=== PATIENT | female | born 1950 | race Caucasian/White ===

== ENCOUNTER 2016-09-24 14:40 | Emergency (ER) | payer MEDICARE, OTHER ==
[~2016-09-24] VITALS: Ht 160 cm; Wt 62.6 kg
[~2016-09-24 14:40] MED LIST: ASPI-991 PO; CARV6.25 PO
[2016-09-24] MEDS ORDERED: predniSONE 20 MG TABLET ONE (14:59)
[2016-09-24] MEDS ORDERED: ALBUTEROL FS 2.5 MG/3 ML VIAL.NEB NEB ONE (15:00)
[2016-09-24] MEDS ORDERED: predniSONE 20 MG TABLET PO ONE (15:00)
[2016-09-24] MEDS ORDERED: IPRATROPIUM NEB FS 0.5 MG/2.5 ML AMPUL.NEB NEB ONE (15:00)
[2016-09-24] MEDS ORDERED: ALBUTEROL FS 2.5 MG/3 ML VIAL.NEB ONE (15:04)
[2016-09-24] MEDS ORDERED: IPRATROPIUM NEB FS 0.5 MG/2.5 ML AMPUL.NEB ONE (15:04)
[2016-09-24 15:36] VITALS: BP 120/68
== END 2016-09-24 15:37 | disposition home or self-care (01) ==
LOC: ER 15:27 → UNDOADMIN 16:05 → TELE 16:05
DX: J45.901 Unspecified asthma with (acute) exacerbation (principal); Z79.82 Long term (current) use of aspirin
CPT/HCPCS: 94640; 99283; A4606; J7512; Z7610

== ENCOUNTER 2018-12-02 13:25 | Emergency (ER) | payer MEDICARE, OTHER ==
[~2018-12-02] VITALS: Ht 157.5 cm; Wt 67.1 kg
[~2018-12-02 13:25] MED LIST changes: +ASPI-1152 PO; -ASPI-991 PO
--- NOTE | 2018-12-02 13:48 | NUR ---
BIB SELF, C/O LIGHTHEADEDNESS, PT THINKS ITS HER BP. DENIES CP, SOB, N/V @ THIS TIME. PT AMBULATORY, AOX4, VSS, RR EVEN AND UNLABORED ON RA. NO ACUTE DISTRESS NOTED. READY FOR EVAL.
--- NOTE | 2018-12-02 14:31 | NUR ---
PT REFUSING IV. AWARE
[2018-12-02 14:52] LABS: BASOPHILS # (AUTO) 0.1 /CMM (0.0-0.2); BASOPHILS % (AUTO) 0.8 % (0.0-2.0); EOSINOPHILS % (AUTO) 4.6 % (0.0-6.0); HEMATOCRIT 41 % (33-45); HEMOGLOBIN 13.5 g/dL (11.5-14.8); LYMPHOCYTES # (AUTO) 1.7 /CMM (0.8-4.8); LYMPHOCYTES % (AUTO) 23.4 % (20.0-44.0); MEAN CORPUSCULAR HGB CONC 33 g/dl (31.0-36.0); MEAN CORPUSCULAR VOLUME 93 fL (82-100); MONOCYTES # (AUTO) 0.5 /CMM (0.1-1.30); MONOCYTES % (AUTO) 6.4 % (2.0-12.0); NEUTROPHILS # (AUTO) 4.7 /CMM (1.8-8.9); NEUTROPHILS % (AUTO) 64.8 % (43.0-81.0); PLATELET COUNT (AUTO) 291 /CMM (150-450); RED BLOOD CELL COUNT(AUTO) 4.34 MIL/uL (4.0-5.2); WHITE BLOOD COUNT (AUTO) 7.2 K/uL (4.3-11.0)
[2018-12-02 15:07] LABS: CALCIUM, SERUM 8.9 mg/dL (8.5-10.1); CARBON DIOXIDE 26 mmol/L (21-32); CHLORIDE 108 mmol/L (98-107); CREATININE 0.6 mg/dL (0.6-1.3); GLUCOSE 96 mg/dL (74-106); POTASSIUM 3.9 mmol/L (3.5-5.1); SODIUM SERUM 145 mmol/L (136-145); UREA NITROGEN, BLOOD 16 mg/dL (7-18)
[2018-12-02] MEDS ORDERED: ALBU8.5H8 IH (15:13)
--- NOTE | 2018-12-02 16:05 | NUR ---
Patient discharged to home in stable condition. Written and verbal after care instructions given. Patient verbalizes understanding of instruction.
[2018-12-02 16:16] VITALS: BP 133/90
== END 2018-12-02 16:05 | disposition home or self-care (01) ==
LOC: ER 13:25
DX: I10 Essential (primary) hypertension (principal); F41.9 Anxiety disorder, unspecified; J45.909 Unspecified asthma, uncomplicated; Z60.2 Problems related to living alone; Z79.82 Long term (current) use of aspirin; Z79.899 Other long term (current) drug therapy
CPT/HCPCS: 36415; 71045-TC; 80048-TC; 84484-TC; 85025-TC

== ENCOUNTER 2019-12-09 14:40 | Outpatient (CLI) | payer MEDICARE, OTHER ==
[~2019-12-09 14:40] MED LIST changes: +ALBU8.5H8 IH; -CARV6.25 PO
== END 2019-12-09 23:59 | disposition home or self-care (01) ==
LOC: RAD 14:40
PROVIDERS: ATTEND Internal Medicine Interventional Cardiology
DX: R06.02 Shortness of breath (principal)
CPT/HCPCS: 71046

== ENCOUNTER 2019-12-11 14:38 | Emergency (ER) | payer MEDICARE, OTHER ==
[~2019-12-11] VITALS: Ht 157.5 cm; Wt 63.5 kg
--- NOTE | 2019-12-11 15:14 | NUR ---
BIBS FROM HOME TO ER BED 7. AAOX4. NOT IN RESP DISTRESS. AMBULATORY. APPERS ANXIOUS. CAME IN FOR NOT FEELING WELL WHICH STARTED @ 14OO. PT REPORTS THAT THIS MORNING SHE STARTED TAKING AUGMENTIN FOR BRONCHITIS. PER PT, SHE FEELS NAUSEOUS, SHAKY AND TINGLING. DENIES PAIN. MD WAS AT BEDSIDE FOR EVAL. ORDERS RECEVIEVED NOTED AND CARRIED OUT.
--- NOTE | 2019-12-11 15:20 | NUR ---
PT WAS PROVIDED WITH CRACKER AND JUICE TO CHECK IF PATIENT ABLE TO TOLERATED KEEPING DOWN FOOD AND LIQUIDS.
[2019-12-11 15:39] VITALS: BP 128/87
--- NOTE | 2019-12-11 16:30 | NUR ---
Patient discharged to home in stable condition. Written and verbal after care instructions given. Patient verbalizes understanding of instruction. Pt ambulatory with a steady gait
== END 2019-12-11 16:31 | disposition home or self-care (01) ==
LOC: ER 14:42
DX: F41.9 Anxiety disorder, unspecified (principal); J45.909 Unspecified asthma, uncomplicated; Z60.2 Problems related to living alone; Z79.82 Long term (current) use of aspirin; Z79.899 Other long term (current) drug therapy

== ENCOUNTER 2019-12-18 08:26 | Outpatient (CLI) | payer MEDICARE, OTHER ==
[2019-12-18 09:16] LABS: BASOPHILS % (AUTO) 0.7 % (0.0-2.0); EOSINOPHILS % (AUTO) 8.4 % (0.0-6.0); HEMATOCRIT 45 % (33-45); HEMOGLOBIN 14.8 g/dL (11.5-14.8); LYMPHOCYTES # (AUTO) 1.4 /CMM (0.8-4.8); LYMPHOCYTES % (AUTO) 25.6 % (20.0-44.0); MEAN CORPUSCULAR HGB CONC 33 g/dl (31.0-36.0); MEAN CORPUSCULAR VOLUME 93 fL (82-100); MONOCYTES # (AUTO) 0.4 /CMM (0.1-1.30); MONOCYTES % (AUTO) 7.2 % (2.0-12.0); NEUTROPHILS # (AUTO) 3.2 /CMM (1.8-8.9); NEUTROPHILS % (AUTO) 58.1 % (43.0-81.0); PLATELET COUNT (AUTO) 295 /CMM (150-450); RED BLOOD CELL COUNT(AUTO) 4.89 MIL/uL (4.0-5.2); WHITE BLOOD COUNT (AUTO) 5.5 K/uL (4.3-11.0)
[2019-12-18 09:30] LABS: ALBUMIN 3.8 g/dL (3.4-5.0); BILIRUBIN,TOTAL 0.5 mg/dL (0.2-1.0); CALCIUM, SERUM 9.1 mg/dL (8.5-10.1); CREATININE 0.7 mg/dL (0.6-1.3); POTASSIUM 3.9 mmol/L (3.5-5.1); TOTAL PROTEIN, SERUM 7.1 g/dL (6.4-8.2)
[2019-12-18 09:39] LABS: FREE T4 (FREE THYROXINE) 0.9 ng/dL (0.76-1.46); THYROID STIMULATING HORMONE 0.819 uIU/mL (0.358-3.74)
== END 2019-12-18 23:59 | disposition home or self-care (01) ==
LOC: LAB 08:26
PROVIDERS: ATTEND Internal Medicine Interventional Cardiology
DX: I10 Essential (primary) hypertension (principal); R53.83 Other fatigue; E55.9 Vitamin D deficiency, unspecified; E03.9 Hypothyroidism, unspecified; E78.5 Hyperlipidemia, unspecified
CPT/HCPCS: 36415; 80053-TC; 80061-TC; 82306; 84439-TC; 84443-TC; 85025-TC

== ENCOUNTER 2019-12-22 15:11 | Inpatient (IN) | payer MEDICARE, OTHER ==
[~2019-12-22] VITALS: Ht 157.5 cm; Wt 63.5 kg
[2019-12-22] VITALS: BP 120/70
[~2019-12-22 15:11] MED LIST changes: +PIPERACILLIN /TAZOBACTAM 3.375 G in IV D5W 100 ML IV SCH
[2019-12-22] MEDS ORDERED: ONDANSETRON HCL/PF 4 MG/2 ML VIAL ONE (15:52)
[2019-12-22 15:59] LABS: BASOPHILS # (AUTO) 0.1 /CMM (0.0-0.2); BASOPHILS % (AUTO) 0.9 % (0.0-2.0); EOSINOPHILS % (AUTO) 0.5 % (0.0-6.0); HEMATOCRIT 41 % (33-45); HEMOGLOBIN 13.6 g/dL (11.5-14.8); LYMPHOCYTES # (AUTO) 1.9 /CMM (0.8-4.8); LYMPHOCYTES % (AUTO) 13.4 % (20.0-44.0); MEAN CORPUSCULAR HGB CONC 33 g/dl (31.0-36.0); MEAN CORPUSCULAR VOLUME 93 fL (82-100); MONOCYTES # (AUTO) 0.7 /CMM (0.1-1.30); NEUTROPHILS # (AUTO) 11.1 /CMM (1.8-8.9); NEUTROPHILS % (AUTO) 80.2 % (43.0-81.0); PLATELET COUNT (AUTO) 313 /CMM (150-450); RED BLOOD CELL COUNT(AUTO) 4.46 MIL/uL (4.0-5.2); WHITE BLOOD COUNT (AUTO) 13.8 K/uL (4.3-11.0)
[2019-12-22] MEDS ORDERED: IV NS 0.9% 500 ML BAG IV ONE (16:00)
[2019-12-22] MEDS ORDERED: ONDANSETRON HCL/PF 4 MG/2 ML VIAL IVP ONE (16:00)
--- NOTE | 2019-12-22 16:03 | NUR ---
PT PRESENTED TO THE ER WITH A C/O RT SIDED ABD PAIN. PT IS AA&O X4. PT WAS TRIAGED AND TAKEN TO ER 12. PT WAS PLACED ON THE MONITOR AND POX.
--- NOTE | 2019-12-22 16:03 | NUR ---
PT LEFT FOR CT VIA GURNEY.
[2019-12-22 16:07] LABS: CALCIUM, SERUM 9.5 mg/dL (8.5-10.1); CREATININE 0.6 mg/dL (0.6-1.3); POTASSIUM 4.4 mmol/L (3.5-5.1)
[2019-12-22 16:13] LABS: ALBUMIN 3.9 g/dL (3.4-5.0); BILIRUBIN,DIRECT 0.1 mg/dL (0.0-0.2); BILIRUBIN,TOTAL 0.4 mg/dL (0.2-1.0)
--- NOTE | 2019-12-22 16:47 | NUR ---
PT APPEARS TO BE RESTING COMFORTABLY. WILL CONTINUE TO MONITOR THE PT.
--- NOTE | 2019-12-22 16:55 | NUR ---
CALLED [facility] FOR CONSULT.
[2019-12-22] MEDS ORDERED: LOSA100T31 PO (16:57)
[2019-12-22] MEDS ORDERED: PIPERACILLIN /TAZOBACTAM 3.375 G in IV D5W 50 ML IV ONE (17:00)
--- NOTE | 2019-12-22 17:06 | NUR ---
CALLED PHARMACY RE: ANTIBIOTIC ORDER
[2019-12-22 17:07] LABS: APPEARANCE,URINE Clear (CLEAR); BILIRUBIN,URINE Negative (NEGATIVE); BLOOD, URINE Negative Ery/uL (NEGATIVE); COLOR,URINE Yellow (YELLOW); KETONES,URINE Trace (NEGATIVE); LEUKOCYTE ESTERASE ,URINE Small (NEGATIVE); NITRITE, URINE Negative (NEGATIVE); PH,URINE 5.5 (5.0-8.0); PROTEIN,URINE Negative (NEGATIVE); UGLUCOSE Negative (NEGATIVE); UROBILINOGEN,URINE 0.2 EU/dL (0.2)
--- NOTE | 2019-12-22 17:09 | NUR ---
PT IS HUNGRY AND IS ASKING FOR FOOD. PT IS TOLD SHE IS NPO AT THIS TIME.
--- NOTE | 2019-12-22 17:20 | NUR ---
CALLED [facility] FOR ADMISSION
[2019-12-22 17:31] LABS: BACTERIA,URINE 1+ /HPF (None Seen); RBC,URINE NONE SEEN /HPF (0-2); SQUAMOUS EPITHELIAL CELL,UR Few /HPF (None Seen)
--- NOTE | 2019-12-22 17:52 | NUR ---
epic paged. requested a medsurg bed from rn supervisor education
--- NOTE | 2019-12-22 18:09 | NUR ---
DR JIMENEZ IS SPEAKING TO DR HICKS RE: ADMISSION.
[2019-12-22] MEDS ORDERED: IV NS 0.9% 1,000 ML IV PRN (18:14)
[2019-12-22] MEDS ORDERED: MORPHINE SULFATE INJ 2 MG/ML DISP.SYRIN IV PRN (18:30)
[2019-12-22] MEDS ORDERED: HYDROCODONE/APAP 5/325MG 1 EACH TABLET PO PRN (18:30)
[2019-12-22] MEDS ORDERED: MAG HYDROX/AL HYDROX/SIMETH 30 ML UDC PO PRN (18:30)
[2019-12-22] MEDS ORDERED: MAGNESIUM HYDROXIDE 30 ML UDC PO PRN (18:30)
[2019-12-22] MEDS ORDERED: ACETAMINOPHEN 325 MG TABLET PO PRN (18:30)
[2019-12-22] MEDS ORDERED: ONDANSETRON HCL/PF 4 MG/2 ML VIAL IVP PRN (18:30)
[2019-12-22] MEDS ORDERED: Z GUARD REMEDY 2 OZ OINT TP PRN (18:30)
--- NOTE | 2019-12-22 18:32 | NUR ---
CALLING REPORT TO LUZ THOMPSON
--- NOTE | 2019-12-22 18:43 | NUR ---
COVID 19 SWAB SENT TO LAB PER PRE SURGURY PROTOCOL.
[2019-12-22 20:00] VITALS: BP 120/70
--- NOTE | 2019-12-22 20:00 | NUR ---
MS RN ADMITTING NOTES PATIENT ARRIVED ON UNIT APPROXIMATELY 1914; PATIENT IS AMBULATORY, A/OX4; SKIN INTACT; BREATHING EVEN AND UNLABORED; NO SOB NOTED; PATIENT TOLERATING ROOM AIR WELL; PATIENT DENIES PAIN; PATIENT VERBALIZED SHE IS HUNGRY AND HAS NOT EATEN SINCE YESTERDAY; BELONGINGS CHECKED; MEDICATION CHECKED; PATIENT REPORTED DR. CHRISTIE PRESCRIBED HER COZAAR TO TAKE 100MG/DAILY; WILL INFORM PHARMACY; MED HX OBTAINED; PATIENT ORIENTED TO UNIT AND STAFF; AWAITING ADMITTING ORDERS; SAFETY PRECAUTIONS IMPLEMENTED; BED LOCKED IN LOW POSITION; SIDE RAILS X2; CALL LIGHT WITHIN REACH; WILL CONT TO MONITOR
--- NOTE | 2019-12-22 20:30 | NUR ---
MS RN NOTES SPOKE WITH DR. DUGAN 194 REGARDING PATIENT PROCEDURE; CLD ORDERED FOR NOW. PATIENT WILL BE NPO AFTER MIDNIGHT; PER DR. DUGAN, LAPAROSCOPIC APPENDECTOMY POSSIBLE OPEN AROUND 2PM 12/22; NO CHEMICAL PROPHYLAXIS AT THIS TIME D/T PROCEDURE TOMORROW; WILL INFORM DAY SHIFT; CONSENT SIGNED; WILL CONT TO MONITOR
[2019-12-22] MEDS: PIPERACILLIN /TAZOBACTAM 3.375 G in IV D5W 100 ML IV SCH (23:04)
--- NOTE | 2019-12-23 05:30 | NUR ---
MS RN NOTES RT AT BEDSIDE; PERFORMING EKG; EKG COMPLETED 539; FILED IN PATIENT BINDER; WILL CONT TO MONITOR
[2019-12-23 06:29] LABS: BASOPHILS # (AUTO) 0.1 /CMM (0.0-0.2); BASOPHILS % (AUTO) 1.2 % (0.0-2.0); EOSINOPHILS % (AUTO) 2.8 % (0.0-6.0); HEMATOCRIT 37 % (33-45); HEMOGLOBIN 12.2 g/dL (11.5-14.8); LYMPHOCYTES # (AUTO) 2.1 /CMM (0.8-4.8); LYMPHOCYTES % (AUTO) 24.8 % (20.0-44.0); MEAN CORPUSCULAR HGB CONC 33 g/dl (31.0-36.0); MEAN CORPUSCULAR VOLUME 93 fL (82-100); MONOCYTES # (AUTO) 0.5 /CMM (0.1-1.30); MONOCYTES % (AUTO) 5.6 % (2.0-12.0); NEUTROPHILS # (AUTO) 5.6 /CMM (1.8-8.9); NEUTROPHILS % (AUTO) 65.6 % (43.0-81.0); PLATELET COUNT (AUTO) 270 /CMM (150-450); RED BLOOD CELL COUNT(AUTO) 3.98 MIL/uL (4.0-5.2); WHITE BLOOD COUNT (AUTO) 8.5 K/uL (4.3-11.0)
--- NOTE | 2019-12-23 06:48 | NUR ---
MS RN NOTES PATIENT RESTING IN BED COMFORTABLY; A/OX4; BREATHING EVEN AND UNLABORED; NO SOB NOTED; PATIENT TOLERATING ROOM AIR WELL; NPO STATUS MAINTAINED; ISOLATION PRECAUTIONS MAINTAINED; L AC # 20 INTACT AND PATENT, INFUSING NS @ 75ML/HR; ABLE TO MAKE NEEDS KNOWN; ALL NEEDS RENDERED; SAFETY PRECAUTIONS IMPLEMENTED; BED LOCKED IN LOW POSITION; SIDE RAILS X2; CALL LIGHT WITHIN REACH; WILL ENDORSE DARYL TO ONCOMING SHIFT
--- NOTE | 2019-12-23 07:30 | NUR ---
RN OPENING NOTE Patient is resting in bed, A/O x4m showing no signs of acute distress or SOB, stable on RA. Patient has no complaints of pain at this time. IV line in the LAC #20g is clean and intact, flushing well. Bed is in lowest position, side rails x3 in upright position, call light is within reach, fall safety precautions enforced. Will continue with plan of care.
[2019-12-23 07:31] LABS: CALCIUM, SERUM 8.5 mg/dL (8.5-10.1); CREATININE 0.7 mg/dL (0.6-1.3); MAGNESIUM 1.7 mg/dL (1.8-2.4); PHOSPHORUS 4.5 mg/dL (2.5-4.9); POTASSIUM 3.8 mmol/L (3.5-5.1)
[2019-12-23 08:00] VITALS: BP 101/69
[2019-12-23] MEDS: Magnesium 1GM/D5W 100ML PREMIX 100 ML IV SCH ×2 (08:35→15:47)
[2019-12-23] MEDS: LOSARTAN POTASSIUM 50 MG TABLET PO SCH (09:00)
[2019-12-23] MEDS: PIPERACILLIN /TAZOBACTAM 3.375 G in IV D5W 100 ML IV SCH ×2 (10:01→16:39)
[2019-12-23] MEDS: ALBUTEROL SULFATE INH 18 GM HFA.AER.AD IH SCH (10:18)
[2019-12-23] MEDS ORDERED: BUPIVACAINE 0.5 % PF 150 MG/30 ML VIAL ONE (14:09)
[2019-12-23] MEDS ORDERED: MIDAZOLAM HCL 2 MG/2ML VIAL ONE (14:10)
[2019-12-23] MEDS ORDERED: FENTANYL PF 250MCG/5ML AMPUL ONE (14:11)
[2019-12-23] MEDS ORDERED: FENTANYL PF 100MCG/2ML AMPUL ONE (14:11)
[2019-12-23] MEDS ORDERED: ROCURONIUM BROMIDE 50 MG/5 ML ONE (14:12)
[2019-12-23] MEDS ORDERED: FAMOTIDINE/PF INJ 20 MG/2 ML VIAL IV ONE (14:12)
[2019-12-23] MEDS ORDERED: ALBUTEROL FS 2.5 MG/3 ML VIAL.NEB ONE (15:14)
--- NOTE | 2019-12-23 15:45 | NUR ---
RN NOTE Patient is back from laparoscopic appendectomy. Vital signs BP 122/67 HR 95 RR 18 O2 93% on RA T 97.4 F. Pain level is 7/10 in the lower abdomen. 3 surgical dressings noted in lower abdomen, clean dry and intact with small amount of drainage in the medial abdomen. Patient is A/O showing no signs of acute distress. Will continue to monitor.
[2019-12-23 16:00] VITALS: BP 122/67
[2019-12-23] MEDS ORDERED: MORPHINE SULFATE INJ 2 MG/ML DISP.SYRIN IV PRN (16:30)
[2019-12-23] MEDS ORDERED: ONDANSETRON HCL/PF 4 MG/2 ML VIAL IVP PRN (16:30)
[2019-12-23] MEDS ORDERED: oxyCODONE/APAP (5/325 MG) 1 UDTAB TABLET PO PRN (16:30)
[2019-12-23] MEDS ORDERED: IV D5/0.45 NACL W/20 MEQ KCL 1L IV PRN ×2 (16:30)
--- NOTE | 2019-12-23 18:00 | NUR ---
RN NOTE Received verbal order from MD to [facility]. Will carry out orders.
--- NOTE | 2019-12-23 19:24 | NUR ---
RN CLOSING NOTE Patient is resting in bed, A/O x4m showing no signs of acute distress or SOB, stable on RA. IV line in the LAC #20g is clean and intact, flushing well. All patient needs met, all due medications given, patient kept clean and dry throughout the shift. Bed is in lowest position, side rails x3 in upright position, call light is within reach, fall safety precautions enforced. Will endorse to senior quality engineer..
--- NOTE | 2019-12-23 19:30 | NUR ---
ms sade initial notes received report from am nurse and seen pt in bed on sitting position while talking to someone on her cellphone. denies any pain or any discomfort at this time. dressing on her abdomen dry and intact. still with IVF of ns at 75ml/hr infusing. kept her warm and comfortable at all times. will continue monitoring.
[2019-12-23 20:30] VITALS: BP 92/50
[2019-12-24] MEDS: PIPERACILLIN /TAZOBACTAM 3.375 G in IV D5W 100 ML IV SCH ×3 (00:30→16:06)
--- NOTE | 2019-12-24 01:30 | NUR ---
ms sade notes zosyn IVP bag hung by another nurse as ordered. resting comfortably in bed with no signs of distress noted. will continue monitoring.
--- NOTE | 2019-12-24 06:43 | NUR ---
ms auriculotherapist notes pt back to sleep after she used the restroom. stable throughout the night and slept well. denies any pain or any discomfort. all due meds given and all needs met. pt request to stay one more night if possible and she wants to speak to the doctor. spoke to her if she have any concern she will speak to the charge nurse and will notify md as well. kept her warm and comfortable at all times place call light at reach, will endorse.
--- NOTE | 2019-12-24 07:15 | NUR ---
RN opening note: Received patient in bed. Awake, alert and oriented x4. Able to make needs known. S/P appendectomy with no s/sx of pain noted. Patient reports minimal pain at site and "can still manage without pain medications". On room air with saturation @ 95% noted. No SOB and not in distress. IV site clean, dry, patent and intact. call light in reach. Bed locked, low and at semi-lovell's position. Side rails up x3. Safety ensured and observed. Will continue to monitor.
[2019-12-24 08:00] VITALS: BP 110/70
[2019-12-24] MEDS: LOSARTAN POTASSIUM 50 MG TABLET PO SCH (09:02)
[2019-12-24] MEDS: ALBUTEROL SULFATE INH 18 GM HFA.AER.AD IH SCH (09:03)
[2019-12-24 09:35] LABS: CALCIUM, SERUM 8.7 mg/dL (8.5-10.1); CREATININE 0.7 mg/dL (0.6-1.3); POTASSIUM 3.9 mmol/L (3.5-5.1)
[2019-12-24 09:41] LABS: ALBUMIN 3.2 g/dL (3.4-5.0); BILIRUBIN,TOTAL 0.4 mg/dL (0.2-1.0); TOTAL PROTEIN, SERUM 6.6 g/dL (6.4-8.2)
[2019-12-24 09:48] LABS: BASOPHILS # (AUTO) 0.1 /CMM (0.0-0.2); BASOPHILS % (AUTO) 0.6 % (0.0-2.0); EOSINOPHILS % (AUTO) 1.9 % (0.0-6.0); HEMATOCRIT 41 % (33-45); HEMOGLOBIN 13.3 g/dL (11.5-14.8); LYMPHOCYTES # (AUTO) 1.5 /CMM (0.8-4.8); LYMPHOCYTES % (AUTO) 15.2 % (20.0-44.0); MEAN CORPUSCULAR HGB CONC 33 g/dl (31.0-36.0); MEAN CORPUSCULAR VOLUME 92 fL (82-100); MONOCYTES # (AUTO) 0.6 /CMM (0.1-1.30); NEUTROPHILS # (AUTO) 7.3 /CMM (1.8-8.9); NEUTROPHILS % (AUTO) 76.3 % (43.0-81.0); PLATELET COUNT (AUTO) 303 /CMM (150-450); WHITE BLOOD COUNT (AUTO) 9.6 K/uL (4.3-11.0)
[2019-12-24] MEDS ORDERED: LEVO500T90 PO (11:46)
[2019-12-24 15:06] VITALS: BP 114/63
--- NOTE | 2019-12-24 18:30 | NUR ---
billing and insurance coordinator note: Patient was seen by Dr. Durán earlier on shift and patient was informed about discharged. Patient left facility via private car in stable condition. Belongings form were signed and all belongings returned. Discharged instructions were given, signed and understood by the patient.
== END 2019-12-24 18:15 | disposition home or self-care (01) | DRG 343 ==
LOC: EDUNIT# 15:11 → ER 15:13 → MED 18:55
PROVIDERS: ADMIT Internal Medicine; ATTEND Internal Medicine
PROC: 0DTJ4ZZ Resection of Appendix, Percutaneous Endoscopic Approach (ICD-10-PCS; principal; 2019-12-22)
DX: K35.30 Acute appendicitis with localized peritonitis, without perforation or gangrene (principal); I10 Essential (primary) hypertension; J45.909 Unspecified asthma, uncomplicated; D72.829 Elevated white blood cell count, unspecified; E83.42 Hypomagnesemia
CPT/HCPCS: 36415; 71045-TC; 80048-TC; 80053-TC; 80076-TC; 81000-TC; 83605-TC; 83690-TC; 83735-TC; 84100-TC; 85025-TC; 85610-TC; 85730-TC; 86850-TC; 87040-TC; 87081-TC; 87086-TC; 87186-TC; 88304-TC; G0378; J0690; J1100; J2250; J2270; J2405; J2543; J2704; J2710; J2765; J3010; J3475; J3480; J3490; J7030; J7040; J7060; U0003-CS

== ENCOUNTER 2020-01-06 00:21 | Inpatient (IN) | payer MEDICARE, OTHER ==
[~2020-01-06] VITALS: Ht 157.5 cm; Wt 66.2 kg
[~2020-01-06 00:21] MED LIST changes: -ASPI-1152 PO; +ASPI-1420 PO; +LEVO500T90 PO; +LOSA100T31 PO; -PIPERACILLIN /TAZOBACTAM 3.375 G in IV D5W 100 ML IV SCH
--- NOTE | 2020-01-06 00:30 | NUR ---
PT CAME TO THE ED GENERALIZED ABD PAIN X 3 HRS. +N/-V/-D. PT AAOX4, VSS, RESPIRATIONS EVEN AND UNLABORED ON RA W/ NAD NOTED. PT CONNECTED TO THE MONITOR AND POX.
--- NOTE | 2020-01-06 00:42 | NUR ---
URINE COLLECTED AND SENT TO LAB
[2020-01-06] MEDS ORDERED: ONDANSETRON HCL/PF 4 MG/2 ML VIAL ONE ×2 (00:45→02:13)
[2020-01-06] MEDS ORDERED: MORPHINE SULFATE INJ 4 MG/ML DISP.SYRIN ONE ×2 (00:46→02:13)
[2020-01-06 00:48] LABS: BILIRUBIN,URINE Negative (NEGATIVE); BLOOD, URINE Negative Ery/uL (NEGATIVE); COLOR,URINE Yellow (YELLOW); KETONES,URINE Negative (NEGATIVE); LEUKOCYTE ESTERASE ,URINE Small (NEGATIVE); NITRITE, URINE Negative (NEGATIVE); PH,URINE 5.5 (5.0-8.0); PROTEIN,URINE Trace mg/dl (NEGATIVE); UGLUCOSE Negative (NEGATIVE); UROBILINOGEN,URINE 0.2 EU/dL (0.2)
[2020-01-06 00:49] LABS: APPEARANCE,URINE HAZY (CLEAR)
[2020-01-06 00:58] LABS: BACTERIA,URINE 1+ /HPF (None Seen); SQUAMOUS EPITHELIAL CELL,UR Moderate /HPF (None Seen); YEAST,URINE Few /HPF (None Seen)
[2020-01-06] MEDS ORDERED: ONDANSETRON HCL/PF 4 MG/2 ML VIAL IVP ONE (01:00)
[2020-01-06] MEDS ORDERED: MORPHINE SULFATE INJ 2 MG/ML DISP.SYRIN IV ONE ×2 (01:00→02:30)
[2020-01-06] MEDS ORDERED: IV NS 0.9% 500 ML BAG IV ONE (01:00)
[2020-01-06 01:05] LABS: BASOPHILS # (AUTO) 0.1 /CMM (0.0-0.2); BASOPHILS % (AUTO) 0.8 % (0.0-2.0); EOSINOPHILS % (AUTO) 3.1 % (0.0-6.0); HEMATOCRIT 43 % (33-45); HEMOGLOBIN 14.1 g/dL (11.5-14.8); LYMPHOCYTES # (AUTO) 2.9 /CMM (0.8-4.8); MEAN CORPUSCULAR HGB CONC 33 g/dl (31.0-36.0); MEAN CORPUSCULAR VOLUME 92 fL (82-100); MONOCYTES # (AUTO) 0.7 /CMM (0.1-1.30); MONOCYTES % (AUTO) 6.7 % (2.0-12.0); NEUTROPHILS # (AUTO) 6.7 /CMM (1.8-8.9); NEUTROPHILS % (AUTO) 62.4 % (43.0-81.0); PLATELET COUNT (AUTO) 346 /CMM (150-450); RED BLOOD CELL COUNT(AUTO) 4.68 MIL/uL (4.0-5.2); WHITE BLOOD COUNT (AUTO) 10.8 K/uL (4.3-11.0)
[2020-01-06] MEDS ORDERED: IOHEXOL-300 100 ML VIAL IV ONE (01:18)
[2020-01-06] MEDS ORDERED: CT SWABBABLE VALVE TRANS SET 1 EA INFUS.SET MC ONE (01:18)
[2020-01-06] MEDS ORDERED: IV NS 0.9% 250 ML IV ONE (01:19)
[2020-01-06 01:20] LABS: CALCIUM, SERUM 9.6 mg/dL (8.5-10.1); CREATININE 0.7 mg/dL (0.6-1.3)
[2020-01-06 01:25] LABS: ALBUMIN 4.1 g/dL (3.4-5.0); BILIRUBIN,DIRECT 0.1 mg/dL (0.0-0.2); BILIRUBIN,TOTAL 0.3 mg/dL (0.2-1.0); TOTAL PROTEIN, SERUM 7.5 g/dL (6.4-8.2)
--- NOTE | 2020-01-06 01:25 | NUR ---
[place] oliveira in [facility] - 01/06/20 at 0231 by KATE REPORT GIVEN TO LUZ BAKER FOR DARYL
[2020-01-06] MEDS ORDERED: IV NS 0.9% 1,000 ML IV ONE (02:30)
[2020-01-06] MEDS ORDERED: ONDANSETRON HCL/PF 4 MG/2 ML VIAL IV ONE (02:30)
--- NOTE | 2020-01-06 04:52 | NUR ---
PAGED DR. DUGAN
--- NOTE | 2020-01-06 04:57 | NUR ---
PAGED DR. NILTON PRUITT
[2020-01-06] MEDS ORDERED: DIATR MEGLU/DIATRIZOATE SODIUM 120 ML BOTTLE (GASTROGRAPHIN) ONE (05:00)
--- NOTE | 2020-01-06 05:19 | NUR ---
REPORT GIVEN TO LUZ DSOUZA FOR DARYL
[2020-01-06] MEDS ORDERED: LORA10TA68 PO (05:24)
[2020-01-06] MEDS ORDERED: ONDANSETRON HCL/PF 4 MG/2 ML VIAL IVP PRN (05:30)
[2020-01-06] MEDS ORDERED: MORPHINE SULFATE INJ 2 MG/ML DISP.SYRIN IV PRN (05:30)
--- NOTE | 2020-01-06 05:30 | NUR ---
RADIOLOGY AT BEDSIDE
--- NOTE | 2020-01-06 05:40 | NUR ---
ADMISSION NOTE. PATIENT ADMITTED FROM ER FOR DX OF SBO UNDER DR. CALLAWAY OF [facility]. WITH CC OF N/V AND ABD PAIN EARLIER TONGITH SO SHE DROVE HERSELF TO ER. PATIENT DENIES N/V AT THIS TIME. PATIENT REPORTS PAIN IN ABD MDDLE. RATED 3/10 ORIENTED TO ROOM.L. BED DOWN LOCKED CALL LIGHT IN REACH. VERBALIZED UNDERSTANDING TO CALL FOR ASSISTANCE NEEDED.
--- NOTE | 2020-01-06 05:44 | NUR ---
PT TRANSFERRED TO ROOM IN STABLE CONDITION
[2020-01-06] MEDS: IV NS 0.9% 1,000 ML IV PRN ×2 (05:56→21:53)
[2020-01-06 06:00] VITALS: BP 136/75
--- NOTE | 2020-01-06 06:00 | NUR ---
pt adopted no family hx known.
--- NOTE | 2020-01-06 06:08 | NUR ---
PATIENT REFUSED NGT INSERTION. INFORMED THAT DOCTOR ORDERED NGT FOR SBO. DISCUSSED RISKS AND BENEFITS OF HAVING ONE INSERTED PER MD RECOMMENDATIONS. PT REFUSING INSERTION AT THIS TIME. PT STATES, ' I DON'T WANT ANYTHING SHOVED IN MY NOSE. BESIDES I THINK THE OBSTRUCTION MIGHT CLEAR BY ITSELF, ID LIKE TO HOLD OFF ON THAT FOR NOW."
[2020-01-06 06:34] VITALS: BP 136/75
[2020-01-06 08:00] VITALS: BP 132/77
--- NOTE | 2020-01-06 08:00 | NUR ---
MS RN AM NOTES RECEIVED PATIENT ALERT AND ORIENTED X4. RESPIRATIONS NON LABORED IN ROOM AIR.PATIENT DENIES N/V AT THIS TIME. PATIENT REPORTS ABD DISCOMFORT RATED 1/10 BUT TOLERABLE UNLIKE BEFORE.WILL MONITOR.ON NPO AND PT IS COMPLIANT.PENDING SURGICAL CONSULT. BED DOWN LOCKED.CALL LIGHT WITHIN REACH. VERBALIZED UNDERSTANDING TO CALL FOR ASSISTANCE NEEDED.
[2020-01-06] MEDS: PANTOPRAZOLE 40 MG VIAL IV SCH (09:20)
[2020-01-06] MEDS: CEFTRIAXONE 1 G in IV D5W 50 ML IV SCH (10:16)
[2020-01-06] MEDS: NITROGLYCERIN 30 GM TUBE TP SCH ×2 (10:40→21:00)
[2020-01-06 16:00] VITALS: BP 114/72
--- NOTE | 2020-01-06 19:30 | NUR ---
MS/RN OPENING NOTES RECEIVED PATIENT IN BED ALERT AND ORIENTED X4. RESPIRATIONS NON LABORED ON ROOM AIR. PATIENT DENIES N/V AT THIS TIME. PATIENT HAS NO SIGNS OF SOB OR DISTRESS NOTED AT THIS TIME. IV ACCESS ON LEFT AC G#18 PATENT AND INTACT RUNNING NS AT 75 ML/HR. SAFETY MEASURES ARE IN PLACE, BED LOCKED AND IN LOWEST POSITION, CALL LIGHT IS WITHIN REACH. WILL CONTINUE TO MONITOR PATIENT DURING SHIFT.
[2020-01-06 20:00] VITALS: BP 98/60
--- NOTE | 2020-01-07 01:22 | NUR ---
RN NOTES PT. VOMITED BUT REFUSED TO HAVE ZOFRAN IV, PT. STATED THAT" SHE KNOWS HER BODY AND THIS IS JUST BECAUSE OF REFLUX", EXPLAINED THE IMPORTANCE OF ANTI-NAUSEA MEDICATION , PT. STILL REFUSING.
[2020-01-07 06:25] LABS: BASOPHILS % (AUTO) 0.1 % (0.0-2.0); HEMATOCRIT 45 % (33-45); HEMOGLOBIN 14.6 g/dL (11.5-14.8); LYMPHOCYTES # (AUTO) 1.6 /CMM (0.8-4.8); LYMPHOCYTES % (AUTO) 7.7 % (20.0-44.0); MEAN CORPUSCULAR HGB CONC 32 g/dl (31.0-36.0); MEAN CORPUSCULAR VOLUME 92 fL (82-100); MONOCYTES # (AUTO) 0.9 /CMM (0.1-1.30); MONOCYTES % (AUTO) 4.1 % (2.0-12.0); NEUTROPHILS # (AUTO) 18.9 /CMM (1.8-8.9); NEUTROPHILS % (AUTO) 88.1 % (43.0-81.0); PLATELET COUNT (AUTO) 349 /CMM (150-450); RED BLOOD CELL COUNT(AUTO) 4.91 MIL/uL (4.0-5.2); WHITE BLOOD COUNT (AUTO) 21.4 K/uL (4.3-11.0)
[2020-01-07 07:10] LABS: ALBUMIN 3.4 g/dL (3.4-5.0); BILIRUBIN,TOTAL 0.7 mg/dL (0.2-1.0); CALCIUM, SERUM 8.9 mg/dL (8.5-10.1); CREATININE 1.1 mg/dL (0.6-1.3); MAGNESIUM 1.8 mg/dL (1.8-2.4); PHOSPHORUS 4.3 mg/dL (2.5-4.9); POTASSIUM 3.8 mmol/L (3.5-5.1)
[2020-01-07 07:28] LABS: THYROID STIMULATING HORMONE 0.571 uIU/mL (0.358-3.74)
--- NOTE | 2020-01-07 07:30 | NUR ---
MS/RN OPENING NOTES Received patient in bed, A&O x 4. Denies N/V or pain/discomfort at this time. Breathing even and non-labored on RA. No respiratory or cardiac distress noted. Patient IV access noted on the left wrist #18, patent and intact, infusing NS @ 75ml/hr. No s/s of infection/infiltration noted on the site. Patient remains NPO, explain its importance. Patient verbalized understanding. Sensation from all peripheral extremities noted. Fall precautions maintained. Will continue to monitor for any changes in condition.
[2020-01-07 08:00] VITALS: BP 93/57
--- NOTE | 2020-01-07 08:20 | NUR ---
PT VERBALIZED THAT WHEN SHE VOMITS IT'S NOT DUE TO NAUSEA,SHE STATED THAT WHEN SHE WAS YOUNG, HER UPPER ABDOMINAL VALVE WAS MESSED UP TRYING TO LOSE WEIGHT BECAUSE SHE WAS OVERWEIGHT WHEN SHE WAS YOUNG.
[2020-01-07] MEDS: CEFTRIAXONE 1 G in IV D5W 50 ML IV SCH (08:38)
[2020-01-07] MEDS: PANTOPRAZOLE 40 MG VIAL IV SCH (08:38)
[2020-01-07] MEDS: NITROGLYCERIN 30 GM TUBE TP SCH ×3 (08:38→21:00)
--- NOTE | 2020-01-07 09:30 | NUR ---
PT WAS SEEN BY DR DUGAN AND [facility] AND STARTED QUESTIONING PT'S WBC SPIKED UP FROM 10.8 YESTERDAY TO 21.[address] DUGAN ORDERED REPEAT BLOOD DRAW OF CBC.
[2020-01-07] MEDS: METOCLOPRAMIDE HCL 10 MG/2 ML VIAL IV SCH ×3 (10:12→20:46)
[2020-01-07 11:12] LABS: BASOPHILS # (AUTO) 0.1 /CMM (0.0-0.2); BASOPHILS % (AUTO) 0.3 % (0.0-2.0); HEMATOCRIT 41 % (33-45); HEMOGLOBIN 13.6 g/dL (11.5-14.8); LYMPHOCYTES # (AUTO) 1.4 /CMM (0.8-4.8); LYMPHOCYTES % (AUTO) 6.5 % (20.0-44.0); MEAN CORPUSCULAR HGB CONC 33 g/dl (31.0-36.0); MEAN CORPUSCULAR VOLUME 91 fL (82-100); MONOCYTES % (AUTO) 4.5 % (2.0-12.0); NEUTROPHILS # (AUTO) 19.3 /CMM (1.8-8.9); NEUTROPHILS % (AUTO) 88.7 % (43.0-81.0); PLATELET COUNT (AUTO) 307 /CMM (150-450); RED BLOOD CELL COUNT(AUTO) 4.54 MIL/uL (4.0-5.2); WHITE BLOOD COUNT (AUTO) 21.7 K/uL (4.3-11.0)
[2020-01-07] MEDS: IV NS 0.9% 1,000 ML IV PRN (13:59)
--- NOTE | 2020-01-07 15:35 | NUR ---
MS/RN NOTES Patient refused reglan, states "Reglan makes me loopy, I don't like it. Besides, I don't feel nauseated as of right now." Will continue to monitor patient for any changes in condition.
[2020-01-07 16:00] VITALS: BP 110/65
--- NOTE | 2020-01-07 19:00 | NUR ---
MS/RN CLOSING NOTES Patient in bed, A&O x 4. Patient reported to have 2 vomiting episodes during the day, but refused to take reglan. Denies N/V or pain/discomfort at this time. Breathing even and non-labored on RA, no SOB noted. No cardiac distress noted. Patient IV access noted on the left wrist #18, patent and intact, infusing NS @ 75ml/hr. No s/s of infection/infiltration noted on the site. Sensation from all peripheral extremities noted. Patient ambulated with assist in the afternoon, steady gait noted. Patient tolerating clear liquid diets as well. Fall precautions maintained. Will endorse to carton making machine operator nurse.
--- NOTE | 2020-01-07 19:30 | NUR ---
MS/RN OPENING NOTES RECEIVED PATIENT AWAKE IN BED ALERT AND ORIENTED X4. RESPIRATIONS NON LABORED ON ROOM AIR. PATIENT DENIES N/V, AND PAIN AT THIS TIME. PATIENT HAS NO SIGNS OF SOB OR DISTRESS NOTED AT THIS TIME. IV ACCESS ON LEFT WRIST G#18 PATENT AND INTACT RUNNING NS AT 75 ML/HR. SAFETY MEASURES ARE IN PLACE, BED LOCKED AND IN LOWEST POSITION, CALL LIGHT IS WITHIN REACH. WILL CONTINUE TO MONITOR PATIENT DURING SHIFT.
[2020-01-07 20:36] VITALS: BP 125/76
--- NOTE | 2020-01-07 21:00 | NUR ---
MS/RN NOTES PATIENT REFUSES TO HAVE NITROL OINTMENT APPLIED. PATIENT IS IN NO DISTRESS AT THIS TIME. BLOOD PRESSURE IS 125/76, HR 84. WILL CONTINUE TO MONITOR PATIENT.
[2020-01-08] MEDS: METOCLOPRAMIDE HCL 10 MG/2 ML VIAL IV SCH ×5 (02:45→20:55)
[2020-01-08] MEDS: IV NS 0.9% 1,000 ML IV PRN ×2 (05:22→18:24)
--- NOTE | 2020-01-08 06:03 | NUR ---
MS/RN CLOSING NOTES PATIENT IS RESTING IN BED, ALERT AND ORIENTED X4. RESPIRATIONS NON LABORED ON ROOM AIR. PATIENT DENIES N/V, AND PAIN AT THIS TIME. PATIENT HAS NO SIGNS OF SOB OR DISTRESS NOTED AT THIS TIME. IV ACCESS ON LEFT WRIST G#18 PATENT AND INTACT RUNNING NS AT 75 ML/HR. SAFETY MEASURES ARE IN PLACE, BED LOCKED AND IN LOWEST POSITION, CALL LIGHT IS WITHIN REACH. PATIENTS NEEDS HAVE BEEN MET DURING SHIFT, WILL ENDORSE CARE TO DAY SHIFT NURSE.
[2020-01-08 06:50] LABS: CALCIUM, SERUM 9.1 mg/dL (8.5-10.1); CREATININE 0.6 mg/dL (0.6-1.3); POTASSIUM 3.6 mmol/L (3.5-5.1)
[2020-01-08 06:54] LABS: BASOPHILS % (AUTO) 0.2 % (0.0-2.0); HEMATOCRIT 39 % (33-45); HEMOGLOBIN 12.8 g/dL (11.5-14.8); LYMPHOCYTES # (AUTO) 1.2 /CMM (0.8-4.8); LYMPHOCYTES % (AUTO) 5.9 % (20.0-44.0); MEAN CORPUSCULAR HGB CONC 33 g/dl (31.0-36.0); MEAN CORPUSCULAR VOLUME 92 fL (82-100); MONOCYTES # (AUTO) 0.8 /CMM (0.1-1.30); MONOCYTES % (AUTO) 3.8 % (2.0-12.0); NEUTROPHILS # (AUTO) 18.2 /CMM (1.8-8.9); NEUTROPHILS % (AUTO) 90.1 % (43.0-81.0); PLATELET COUNT (AUTO) 286 /CMM (150-450); RED BLOOD CELL COUNT(AUTO) 4.26 MIL/uL (4.0-5.2); WHITE BLOOD COUNT (AUTO) 20.3 K/uL (4.3-11.0)
[2020-01-08 08:00] VITALS: BP 132/69
--- NOTE | 2020-01-08 08:00 | NUR ---
MS/RN AM NOTES PATIENT IS RESTING IN BED, ALERT AND ORIENTED X4. RESPIRATIONS NON LABORED ON ROOM AIR. PATIENT DENIES N/V, AND PAIN AT THIS TIME. PATIENT HAS NO SIGNS OF SOB OR DISTRESS NOTED AT THIS TIME. IV ACCESS ON LEFT WRIST G#18 PATENT AND INTACT RUNNING NS AT 75 ML/HR. PT HAD REGLAN IV AND PROTONIX IV BUT PT VOMITED GREEN LIQUID EMESIS (200 ML)AFTER A FEW MINS SAYING SHE DOESN'T WANT TAKING REGLAN AND PROTONIX IV ANYMORE DUE TO HAVING BAD REACTIONS WITH THEM .SAFETY MEASURES ARE IN PLACE, BED LOCKED AND IN LOWEST POSITION, CALL LIGHT IS WITHIN REACH.
[2020-01-08] MEDS: PANTOPRAZOLE 40 MG VIAL IV SCH (08:12)
[2020-01-08] MEDS: CEFTRIAXONE 1 G in IV D5W 50 ML IV SCH (08:13)
[2020-01-08] MEDS: NITROGLYCERIN 30 GM TUBE TP SCH ×2 (08:14→20:55)
[2020-01-08] MEDS ORDERED: BISACODYL SUPP (10 MG) 10 MG/SUPP.RECT SUPP.RECT RC PRN (12:30)
--- NOTE | 2020-01-08 12:30 | NUR ---
NOTIFIED DR DUGAN OF PT'S REFUSING REGLAN, ZOFRAN AND PROTONIX IV.
[2020-01-08] MEDS: BISACODYL (5 MG) 5 MG TABLET.DR PO PRN (12:35)
[2020-01-08 15:56] VITALS: BP 121/70
[2020-01-08 16:00] VITALS: BP 121/70
--- NOTE | 2020-01-08 16:31 | NUR ---
AMBULATED ALONG THE HALLWAY WITH ASSISTANCE 3X -PT TOLERATED WELL.
--- NOTE | 2020-01-08 18:47 | NUR ---
SITTING IN BED WATCHING TV. DENIES ANY PAIN OR DISTRESS. CALL LIGHT PLACED WITHIN REACH.
--- NOTE | 2020-01-08 19:05 | NUR ---
MS RN NOTES RECEIVED PT IN BED AWAKE AND ABLE TO MAKE NEEDS KNOWN. PT A/O X3. RESPIRATIONS EVEN AND UNLABORED WITH NO S/S OF ACUTE DISTRESS OR SOB NOTED. NO COMPLAINTS OF PAIN AT THIS LUSI. PT NOTED WITH LWRIST #18G PATENT AND INTACT INFUSING NS @75CC/HR. SAFETY MEASURES IN PLACE WITH BED IN LOWEST LOCKED POSITION WITH SIDE RAILS UP X2. CALL LIGHT WITHIN REACH. WILL CONTINUE TO MONITOR.
[2020-01-08 20:00] VITALS: BP 124/72
[2020-01-09] MEDS: METOCLOPRAMIDE HCL 10 MG/2 ML VIAL IV SCH ×4 (03:30→21:21)
--- NOTE | 2020-01-09 06:59 | NUR ---
MS RN NOTES PT IN BED AWAKE AND ABLE TO MAKE NEEDS KNOWN. PT A/O X3. RESPIRATIONS EVEN AND UNLABORED WITH NO S/S OF ACUTE DISTRESS OR SOB NOTED THROUGHOUT SHIFT. NO COMPLAINTS OF PAIN AT THIS LUIS. PT NOTED WITH LWRIST #18G PATENT AND INTACT INFUSING NS @75CC/HR. SAFETY MEASURES IN PLACE WITH BED IN LOWEST LOCKED POSITION WITH SIDE RAILS UP X2. CALL LIGHT WITHIN REACH. WILL ENDORSE TO ONCOMING NURSE FOR DARYL.
[2020-01-09 08:00] VITALS: BP 123/88
--- NOTE | 2020-01-09 08:00 | NUR ---
MS RN NOTES PT IN BED AWAKE AND ABLE TO MAKE NEEDS KNOWN. PT A/O X3. RESPIRATIONS EVEN AND UNLABORED WITH NO S/S OF ACUTE DISTRESS OR SOB NOTED THROUGHOUT SHIFT. NO COMPLAINTS OF PAIN AT THIS TIME. PT WITH LWRIST #18G PATENT AND INTACT INFUSING NS @75CC/HR. SAFETY MEASURES IN PLACE WITH BED IN LOWEST LOCKED POSITION WITH SIDE RAILS UP X2. CALL LIGHT WITHIN REACH.
[2020-01-09] MEDS: PANTOPRAZOLE 40 MG VIAL IV SCH (08:20)
[2020-01-09] MEDS: CEFTRIAXONE 1 G in IV D5W 50 ML IV SCH (08:40)
[2020-01-09] MEDS: NITROGLYCERIN 30 GM TUBE TP SCH ×2 (08:40→21:23)
[2020-01-09 11:03] LABS: BASOPHILS % (AUTO) 0.2 % (0.0-2.0); EOSINOPHILS % (AUTO) 0.1 % (0.0-6.0); HEMATOCRIT 39 % (33-45); HEMOGLOBIN 12.8 g/dL (11.5-14.8); LYMPHOCYTES # (AUTO) 1.9 /CMM (0.8-4.8); LYMPHOCYTES % (AUTO) 13.2 % (20.0-44.0); MEAN CORPUSCULAR HGB CONC 33 g/dl (31.0-36.0); MEAN CORPUSCULAR VOLUME 92 fL (82-100); MONOCYTES % (AUTO) 6.6 % (2.0-12.0); NEUTROPHILS # (AUTO) 11.6 /CMM (1.8-8.9); NEUTROPHILS % (AUTO) 79.9 % (43.0-81.0); PLATELET COUNT (AUTO) 301 /CMM (150-450); RED BLOOD CELL COUNT(AUTO) 4.28 MIL/uL (4.0-5.2); WHITE BLOOD COUNT (AUTO) 14.6 K/uL (4.3-11.0)
--- NOTE | 2020-01-09 13:06 | NUR ---
PT C/O SORE THROAT FROM THE VOMITING IN THE PAST. PT MADE LARGE SOFT BROWN BM THIS MORNING AND BEFORE LUNCH. ABLE TO EAT BETTER NOW EXCEPT FOR THE SORE THROAT. WILL NOTIFY
[2020-01-09] MEDS ORDERED: MENTHOL/CETYLPYRD (CEPACOL) 1 LOZ LOZENGE PO PRN (13:30)
[2020-01-09] MEDS: BISACODYL (5 MG) 5 MG TABLET.DR PO PRN (14:11)
[2020-01-09] MEDS: IV NS 0.9% 1,000 ML IV PRN (14:14)
[2020-01-09 16:00] VITALS: BP 132/77
--- NOTE | 2020-01-09 19:03 | NUR ---
PT MADE 2 SOFT BROWN BM. 1 LARGE AND 1 MODERATE AMOUNT.PT AMBULATING THE HALLWAY WITH ASSIST 3X. NO NAUSEA OR VOMITING EPISODE DURING THE SHIFT.WILL MONITOR.CALL LIGHT PLACED WITHIN REACH.
--- NOTE | 2020-01-09 19:05 | NUR ---
RN MS OPENING NOTES RECEIVED PATIENT IN BED AWAKE ALERT AND ORIENTED X3, RESPIRATIONS EVEN AND UNLABORED WITH EQUAL RISE AND FALL OF CHEST AT THIS TIME DENIES ANY PAIN OR DISCOMFORT, IV SITE TO LEFT WRIST #18 G INTACT AND PATENT, NO REDNESS, NO INFILTRATION PRESENT, IVF INFUSING AT THIS TIME, ORIENTED TO STAFF AND CALL LIGHT AND KEPT WITHIN REACH, SAFETY PRECAUTIONS IN PLACE, LOW BED AND LOCKED, ALL NEEDS ATTENDED AT THIS TIME, FLUIDS PROVIDED, REMAINS COMFORTABLE WILL CONTINUE TO MONITOR, HAD BOWEL MOVEMENT, FORMED BROWN COLOR.
[2020-01-09 20:00] VITALS: BP 118/63
[2020-01-09 20:19] VITALS: BP 118/63
--- NOTE | 2020-01-09 21:00 | NUR ---
rn ms notes patient refused reglan despite education. states this is the first day everything is flowing smoothly and does not want to take anything more at this time.
[2020-01-10] MEDS: METOCLOPRAMIDE HCL 10 MG/2 ML VIAL IV SCH ×2 (03:17→09:30)
--- NOTE | 2020-01-10 06:33 | NUR ---
RN MS CLOSING NOTES PATIENT IN BED AWAKE ALERT AND ORIENTED X3, RESPIRATIONS EVEN AND UNLABORED WITH EQUAL RISE AND FALL OF CHEST AT THIS TIME DENIES ANY PAIN OR DISCOMFORT, IV SITE TO LEFT WRIST #18 G INTACT AND PATENT, NO REDNESS, NO INFILTRATION PRESENT, IVF OFF AT THIS TIME PATIENT IS DOING AM CARE ROUTINE, INFUSED THROUGHOUT SHIFT, CALL LIGHT KEPT WITHIN REACH, SAFETY PRECAUTIONS IN PLACE, LOW BED AND LOCKED, ALL NEEDS ATTENDED AT THIS TIME, FLUIDS PROVIDED, REMAINS COMFORTABLE WILL CONTINUE TO MONITOR, HAD BOWEL MOVEMENT THIS SHIFT, FORMED BROWN COLOR. REMAINS COMFORTABLE , REFUSED REGLAN SCHEDULED, WILL ENDORSE TO NEXT SHIFT.
--- NOTE | 2020-01-10 07:42 | NUR ---
MS/RN OPENING NOTES RECEIVED PATIENT IN BED AWAKE ALERT AND ORIENTED X3, RESPIRATIONS EVEN AND UNLABORED WITH EQUAL RISE AND FALL OF CHEST AT THIS TIME DENIES ANY PAIN OR DISCOMFORT, IV SITE TO LEFT WRIST #18 G INTACT AND PATENT, NO REDNESS, NO INFILTRATION PRESENT. CALL LIGHT WITHIN REACH, SAFETY PRECAUTIONS IN PLACE, LOW BED AND LOCKED. WILL CONTINUE TO MONITOR.
[2020-01-10 08:00] VITALS: BP 123/77
[2020-01-10] MEDS: CEFTRIAXONE 1 G in IV D5W 50 ML IV SCH (08:36)
[2020-01-10 08:37] VITALS: BP 123/77
[2020-01-10] MEDS: NITROGLYCERIN 30 GM TUBE TP SCH (08:37)
[2020-01-10] MEDS: PANTOPRAZOLE 40 MG VIAL IV SCH (08:42)
--- NOTE | 2020-01-10 10:09 | NUR ---
MS/RN NOTES DR. DUGAN TELEPHONE ORDER REPEAT CBC TODAY. NOTED AND CARRIED OUT.
[2020-01-10] MEDS: IV NS 0.9% 1,000 ML IV PRN (10:44)
[2020-01-10 11:24] LABS: BASOPHILS % (AUTO) 0.3 % (0.0-2.0); EOSINOPHILS % (AUTO) 0.9 % (0.0-6.0); HEMATOCRIT 39 % (33-45); HEMOGLOBIN 12.6 g/dL (11.5-14.8); LYMPHOCYTES # (AUTO) 1.6 /CMM (0.8-4.8); LYMPHOCYTES % (AUTO) 14.9 % (20.0-44.0); MEAN CORPUSCULAR HGB CONC 33 g/dl (31.0-36.0); MEAN CORPUSCULAR VOLUME 93 fL (82-100); MONOCYTES # (AUTO) 0.7 /CMM (0.1-1.30); MONOCYTES % (AUTO) 6.4 % (2.0-12.0); NEUTROPHILS # (AUTO) 8.4 /CMM (1.8-8.9); NEUTROPHILS % (AUTO) 77.5 % (43.0-81.0); PLATELET COUNT (AUTO) 296 /CMM (150-450); RED BLOOD CELL COUNT(AUTO) 4.18 MIL/uL (4.0-5.2); WHITE BLOOD COUNT (AUTO) 10.9 K/uL (4.3-11.0)
--- NOTE | 2020-01-10 15:21 | NUR ---
MS/RN NOTES PATIENT IS ALERT AND ORIENTED X4. PATIENT DENIES PAIN AT THIS TIME. RESPIRATION REGULAR AND UNLABORED. THE PATIENT IN NO APPARENT RESPIRATORY DISTRESS. SEEN AND EXAMINED BY MD WITH ORDERS MADE AND CARRIED OUT. PATIENT DISCHARGED AT 1430. PATIENT WAS GIVEN DISCHARGED INSTRUCTIONS AND PATIENT VERBALIZED UNDERSTANDING. THE PATIENT LEFT THE HOSPITAL IN STABLE CONDITION.
== END 2020-01-10 14:30 | disposition home or self-care (01) | DRG 389 ==
LOC: ER 00:25 → MED 05:17
PROVIDERS: ADMIT Nurse Practitioner Acute Care; ATTEND Internal Medicine
DX: K56.7 Ileus, unspecified (principal); N39.0 Urinary tract infection, site not specified; J45.909 Unspecified asthma, uncomplicated; B96.89 Other specified bacterial agents as the cause of diseases classified elsewhere; K44.9 Diaphragmatic hernia without obstruction or gangrene; K57.30 Diverticulosis of large intestine without perforation or abscess without bleeding; I10 Essential (primary) hypertension; D72.829 Elevated white blood cell count, unspecified; E83.42 Hypomagnesemia; K59.00 Constipation, unspecified
CPT/HCPCS: 36415; 71045-TC; 74250-TC; 80048-TC; 80053-TC; 80061-TC; 80076-TC; 81000-TC; 83690-TC; 83735-TC; 84100-TC; 84443-TC; 85025-TC; 85730-TC; 87040-TC; 87081-TC; 87086-TC; C9113; G0378; J0696; J2270; J2405; J2765; J7030; J7040; J7050; J7060; Q9963; Q9967; U0003-CS

== ENCOUNTER 2020-10-06 11:09 | Emergency (ER) | payer MEDICARE, OTHER ==
[~2020-10-06] VITALS: Ht 157.5 cm; Wt 59.4 kg
[~2020-10-06 11:09] MED LIST changes: -LEVO500T90 PO; +LORA10TA68 PO
[2020-10-06] MEDS ORDERED: LORA10TA7 PO (11:17)
[2020-10-06] MEDS ORDERED: OMEP40CA13 PO (11:17)
[2020-10-06] MEDS ORDERED: IV NS 0.9% 1,000 ML BAG IV ONE (12:00)
--- NOTE | 2020-10-06 12:06 | NUR ---
BIBSELF C/O DIARRHEA SINCE SATURDAY AFTER EATING AT [facility] PER PT. PT AAOX4, VSS. RR EVEN & UNLABORED. DENIES CP, SOB, DIZZINESS, N/V AT THIS TIME. PT SEEN & EVAL'D BY DR. MCLAUGHLIN. WILL CONT TO MONITOR.
[2020-10-06 12:09] LABS: BASOPHILS % (AUTO) 0.9 % (0.0-2.0); EOSINOPHILS % (AUTO) 1.6 % (0.0-6.0); HEMATOCRIT 40 % (33-45); HEMOGLOBIN 13.7 g/dL (11.5-14.8); LYMPHOCYTES # (AUTO) 1.3 /CMM (0.8-4.8); LYMPHOCYTES % (AUTO) 26.7 % (20.0-44.0); MEAN CORPUSCULAR HGB CONC 34 g/dl (31.0-36.0); MEAN CORPUSCULAR VOLUME 92 fL (82-100); MONOCYTES # (AUTO) 0.5 /CMM (0.1-1.30); MONOCYTES % (AUTO) 11.3 % (2.0-12.0); NEUTROPHILS # (AUTO) 2.9 /CMM (1.8-8.9); NEUTROPHILS % (AUTO) 59.5 % (43.0-81.0); PLATELET COUNT (AUTO) 272 /CMM (150-450); RED BLOOD CELL COUNT(AUTO) 4.38 MIL/uL (4.0-5.2); WHITE BLOOD COUNT (AUTO) 4.8 K/uL (4.3-11.0)
[2020-10-06] MEDS ORDERED: ONDA4TAB5 PO (12:09)
[2020-10-06 12:16] LABS: CREATININE 0.7 mg/dL (0.6-1.3); POTASSIUM 3.5 mmol/L (3.5-5.1)
[2020-10-06 12:22] LABS: ALBUMIN 3.7 g/dL (3.4-5.0); BILIRUBIN,DIRECT 0.1 mg/dL (0.0-0.2); BILIRUBIN,TOTAL 0.3 mg/dL (0.2-1.0); TOTAL PROTEIN, SERUM 7.2 g/dL (6.4-8.2)
[2020-10-06 12:33] LABS: CALCIUM, SERUM 9.3 mg/dL (8.5-10.1)
[2020-10-06 13:57] VITALS: BP 122/78
--- NOTE | 2020-10-06 13:57 | NUR ---
Patient discharged to home in stable condition. Written and verbal after care instructions given. Patient verbalizes understanding of instruction. IV removed. Catheter intact and site benign. Pressure and 4x4 applied to site. No bleeding noted.
== END 2020-10-06 13:58 | disposition home or self-care (01) ==
LOC: ER 11:12
DX: R11.2 Nausea with vomiting, unspecified (principal); R19.7 Diarrhea, unspecified; R10.9 Unspecified abdominal pain; Z90.89 Acquired absence of other organs; Z60.2 Problems related to living alone; Z79.899 Other long term (current) drug therapy; Z79.82 Long term (current) use of aspirin
CPT/HCPCS: 36415; 80048; 80076; 83690; 85025; 96360; 99283; J7030

== ENCOUNTER 2021-07-02 12:28 | Emergency (ER) | payer MEDICARE, OTHER ==
[~2021-07-02] VITALS: Ht 157.5 cm; Wt 60.8 kg
[~2021-07-02 12:28] MED LIST changes: -LORA10TA68 PO; +LORA10TA7 PO; +OMEP40CA21 PO; +ONDA4TAB5 PO
--- NOTE | 2021-07-02 12:42 | NUR ---
PT C/O BACK PAIN SINCE SHE SLIPPED/FELL LANDING ON HER BACK 4 DAYS AGO. PT A/OX3. TOLERATING R/A WELL WITH NO SOB. CONNECTED PT TO POX AND MONITOR.
--- NOTE | 2021-07-02 13:18 | NUR ---
DR PEREZ AT BEDSIDE FOR EVAL.
[2021-07-02] MEDS ORDERED: HYDR-4303 PO (15:34)
--- NOTE | 2021-07-02 15:46 | NUR ---
Patient discharged to home in stable condition. Written and verbal after care instructions given. Patient verbalizes understanding of instruction.
[2021-07-02 15:47] VITALS: BP 142/66
== END 2021-07-02 15:47 | disposition home or self-care (01) ==
LOC: ER 12:31
DX: S20.212A Contusion of left front wall of thorax, initial encounter (principal); Z60.2 Problems related to living alone; Z79.899 Other long term (current) drug therapy; W01.0XXA Fall on same level from slipping, tripping and stumbling without subsequent striking against object, initial encounter; Y93.89 Activity, other specified; Y92.89 Other specified places as the place of occurrence of the external cause; Y99.8 Other external cause status
CPT/HCPCS: 71100-TC

== ENCOUNTER 2021-07-09 22:14 | Emergency (ER) | payer MEDICARE, OTHER ==
[~2021-07-09] VITALS: Ht 157.5 cm; Wt 61.2 kg
[~2021-07-09 22:14] MED LIST changes: +HYDR-4303 PO
[2021-07-09] MEDS ORDERED: IBUPROFEN 400 MG TABLET PO ONE (23:30)
[2021-07-09] MEDS ORDERED: IBUPROFEN 400 MG TABLET ONE (23:32)
[2021-07-10] MEDS ORDERED: HYDR-3972 PO (00:39)
--- NOTE | 2021-07-10 00:51 | NUR ---
PT ISSUED WITH INCENTIVE SPIROMETER. PT TEACHING PROVIDED. RETURN DEMOSTRATION BY PT.
--- NOTE | 2021-07-10 00:52 | NUR ---
Patient discharged to home in stable condition. Written and verbal after care instructions given. Patient verbalizes understanding of instruction. Pt ambulatory with a steady gait
[2021-07-10 00:53] VITALS: BP 124/79
== END 2021-07-10 00:54 | disposition home or self-care (01) ==
LOC: ER 22:15
DX: S22.42XA Multiple fractures of ribs, left side, initial encounter for closed fracture (principal); Z60.2 Problems related to living alone; Z79.899 Other long term (current) drug therapy; Z79.82 Long term (current) use of aspirin; W18.39XA Other fall on same level, initial encounter; Y93.89 Activity, other specified; Y92.098 Other place in other non-institutional residence as the place of occurrence of the external cause; Y99.8 Other external cause status
CPT/HCPCS: 71250-TC

== ENCOUNTER 2021-12-27 09:09 | Emergency (ER) | payer MEDICARE, OTHER ==
[~2021-12-27] VITALS: Ht 157.5 cm; Wt 66.2 kg
[~2021-12-27 09:09] MED LIST changes: +HYDR-3972 PO
--- NOTE | 2021-12-27 09:21 | NUR ---
The patient bibs for c/o right ear pain since yesterday 2/10 pain scale. No change in hearing. Will continue to monitor the patient.
--- NOTE | 2021-12-27 09:38 | NUR ---
RECIEVED PT 71 YRS FEMALE CAME FROM HOME C/O SOMSTING INSIDE MY LT EAS NO DRAING NO PAIN EXAMINE BY DR. FONTANA
--- NOTE | 2021-12-27 09:42 | NUR ---
TO CT SCAN OF HEAD
[2021-12-27] MEDS ORDERED: KETOROLAC TROMETHAMINE INJ 30 MG/ML VIAL IM ONE (10:00)
--- NOTE | 2021-12-27 10:05 | NUR ---
resting wating for ct result
[2021-12-27] MEDS ORDERED: KETOROLAC TROMETHAMINE 15 MG/ML VIAL ONE (10:25)
--- NOTE | 2021-12-27 11:18 | NUR ---
no dizzess no weekness
[2021-12-27 12:47] VITALS: BP 130/70
--- NOTE | 2021-12-27 12:48 | NUR ---
wating for dispo no pain
--- NOTE | 2021-12-27 13:13 | NUR ---
reassisst by DR. ALBARADO NO PAIN D/C INSTRACTION GIVEN TO PT FULLY AND UNDERSTOOD DINESS ANY DIZZNESS
== END 2021-12-27 13:23 | disposition home or self-care (01) ==
LOC: ER 09:09
DX: H92.01 Otalgia, right ear (principal); Z87.19 Personal history of other diseases of the digestive system; Z60.2 Problems related to living alone; Z79.899 Other long term (current) drug therapy
CPT/HCPCS: 70480; 96372; 99285; J1885

== ENCOUNTER 2022-01-05 17:00 | Inpatient (IN) | payer MEDICARE, OTHER ==
[~2022-01-05] VITALS: Ht 157.5 cm; Wt 64.4 kg
[2022-01-05] MEDS ORDERED: VALS80TA2 PO (17:48)
--- NOTE | 2022-01-05 18:00 | NUR ---
71 YRS FEMALE CAME FROM HOME WALKIN IN C/O I AM NOT FEELING WILL AND COUGHING FOR 4 DAYS
[2022-01-05 18:25] LABS: BASOPHILS % (AUTO) 0.4 % (0.0-2.0); EOSINOPHILS % (AUTO) 3.9 % (0.0-6.0); HEMATOCRIT 39 % (33-45); HEMOGLOBIN 12.9 g/dL (11.5-14.8); LYMPHOCYTES # (AUTO) 1.4 K/uL (0.8-4.8); LYMPHOCYTES % (AUTO) 28.4 % (20.0-44.0); MEAN CORPUSCULAR HGB CONC 33 g/dl (31.0-36.0); MEAN CORPUSCULAR VOLUME 92 fL (82-100); MONOCYTES # (AUTO) 0.6 K/uL (0.1-1.30); MONOCYTES % (AUTO) 12.8 % (2.0-12.0); NEUTROPHILS # (AUTO) 2.7 K/uL (1.8-8.9); NEUTROPHILS % (AUTO) 54.5 % (43.0-81.0); PLATELET COUNT (AUTO) 208 K/uL (150-450); RED BLOOD CELL COUNT(AUTO) 4.19 MIL/uL (4.0-5.2); WHITE BLOOD COUNT (AUTO) 4.9 K/uL (4.3-11.0)
--- NOTE | 2022-01-05 18:30 | NUR ---
RESPIRATION SPONT AND EASY NO ACUTE DISTESS
[2022-01-05 19:18] LABS: CALCIUM, SERUM 9.2 mg/dL (8.5-10.1); CARBON DIOXIDE 25 mmol/L (21-32); CHLORIDE 105 mmol/L (98-107); CREATININE 0.6 mg/dL (0.6-1.3); GLUCOSE 98 mg/dL (74-106); POTASSIUM 4.6 mmol/L (3.5-5.1); SODIUM SERUM 140 mmol/L (136-145); UREA NITROGEN, BLOOD 23 mg/dL (7-18)
--- NOTE | 2022-01-05 19:27 | NUR ---
PT CONDITION STABLE NO SOB OR CHEST PAIN
[2022-01-05 19:28] LABS: ALANINE AMINOTRANSFERASE 28 U/L (12-78); ALBUMIN 3.9 g/dL (3.4-5.0); ALKALINE PHOSPHATASE 55 U/L (46-116); ASPARTATE AMINOTRANSFERASE 33 U/L (15-37); BILIRUBIN,DIRECT 0.1 mg/dL (0.0-0.2); BILIRUBIN,TOTAL 0.2 mg/dL (0.2-1.0); TOTAL PROTEIN, SERUM 7.6 g/dL (6.4-8.2)
--- NOTE | 2022-01-05 19:45 | NUR ---
HAND OFF TO CLEAR JC ESCOBAR
--- NOTE | 2022-01-05 19:59 | NUR ---
NOVEL SWAP . RAPID INFLUZ AND COVID SWAP SND TO LAB
[2022-01-05] MEDS ORDERED: AZITHROMYCIN 250 MG TABLET PO ONE (22:00)
[2022-01-05] MEDS ORDERED: MAG HYDROX/AL HYDROX/SIMETH 30 ML UDC PO PRN (22:00)
[2022-01-05] MEDS ORDERED: ONDANSETRON HCL/PF 4 MG/2 ML VIAL IVP PRN (22:00)
[2022-01-05] MEDS ORDERED: MAGNESIUM HYDROXIDE 30 ML UDC PO PRN (22:00)
[2022-01-05] MEDS ORDERED: IV NS 0.9% 1,000 ML IV PRN (22:00)
[2022-01-05] MEDS ORDERED: HYDROCODONE/APAP 10/325MG TABLET PO PRN (22:00)
[2022-01-05] MEDS ORDERED: ZOLPIDEM TARTRATE 5 MG TABLET PO PRN (22:00)
[2022-01-05] MEDS ORDERED: Z GUARD REMEDY 4 OZ OINT TP PRN (22:00)
[2022-01-05] MEDS ORDERED: CEFTRIAXONE 1 G VIAL IM ONE (22:00)
[2022-01-05] MEDS ORDERED: ACETAMINOPHEN 325 MG TABLET PO PRN (22:00)
[2022-01-05] MEDS ORDERED: CEFTRIAXONE 1 G VIAL ONE (22:36)
[2022-01-05] MEDS ORDERED: AZITHROMYCIN 250 MG TABLET ONE (22:48)
--- NOTE | 2022-01-06 00:15 | NUR ---
RN NOTES RECEIVED REPORT FROM ER NURSE KRISTOFER
--- NOTE | 2022-01-06 00:16 | NUR ---
REPORT GIVEN TO LUZ BUSTILLO
--- NOTE | 2022-01-06 00:25 | NUR ---
SOLUTION DESIGN AND ANALYSIS MANAGER NOTES ADMITTED A 71 Y/O FEMALE PATIENT FROM ER WITH DX OF CHEST PAIN, SECONDARY DX PNA, ALERT ORIENTED X 4, AMBULATORY. ON ROOM AIR SATING AT 97%. RESPIRATORY EVEN AND UNLABORED, NO SOB NOTED. NO S/S OF DISTRESS NOTED. AFEBRILE. NOTED WITH RIGHT FOREARM #20 IV LINE, FLUSHED WITH NS, NO INFILTRATION NOTED AT SITE. PATIENT CONNECTED TO TELE MONITOR. VITAL SIGNS TAKEN AND RECORDED. BODY ASSESSMENT DONE, SKIN INTACT. ALL SAFETY PRECAUTION PROVIDED. BED IN LOWEST POSITION, LOCKED. BED ALARM ARMED. CALL LIGHT WITH IN REACH. CONTINUE TO MONITOR.
[2022-01-06] MEDS ORDERED: LEVOFLOXACIN 500 MG /D5W 100ML 100 ML IV ONE (00:27)
[2022-01-06 00:30] VITALS: BP 127/69
[2022-01-06] MEDS ORDERED: ALBUTEROL FS 2.5 MG/3 ML VIAL.NEB NEB PRN (00:30)
[2022-01-06] MEDS: LEVOFLOXACIN 500 MG /D5W 100ML 500 MG in PREMIX 1 EA IV SCH ×2 (00:55→22:18)
[2022-01-06 04:00] VITALS: BP 104/61
[2022-01-06 07:07] LABS: BASOPHILS % (AUTO) 0.3 % (0.0-2.0); HEMATOCRIT 37 % (33-45); HEMOGLOBIN 12.7 g/dL (11.5-14.8); LYMPHOCYTES # (AUTO) 1.4 K/uL (0.8-4.8); MEAN CORPUSCULAR HGB CONC 34 g/dl (31.0-36.0); MEAN CORPUSCULAR VOLUME 92 fL (82-100); MONOCYTES # (AUTO) 0.6 K/uL (0.1-1.30); MONOCYTES % (AUTO) 12.8 % (2.0-12.0); NEUTROPHILS # (AUTO) 2.6 K/uL (1.8-8.9); NEUTROPHILS % (AUTO) 53.9 % (43.0-81.0); PLATELET COUNT (AUTO) 208 K/uL (150-450); RED BLOOD CELL COUNT(AUTO) 4.07 MIL/uL (4.0-5.2); WHITE BLOOD COUNT (AUTO) 4.7 K/uL (4.3-11.0)
--- NOTE | 2022-01-06 07:21 | NUR ---
RN NOTES PATIENT AWAKE. REMAIN STABLE. RESPIRATORY EVEN AND UNLABORED, NO SOB NOTED. NO S/S OF DISTRESS NOTED. ALL DUE MEDS GIVEN PER MD'S ORDERED. ALL SAFETY PRECAUTION PROVIDED, BED IN LOWEST POSITION. LOCKED. REPORT GIVEN TO MORNING SHIFT NURSE.
[2022-01-06 07:26] LABS: CALCIUM, SERUM 8.8 mg/dL (8.5-10.1); CARBON DIOXIDE 25 mmol/L (21-32); CHLORIDE 106 mmol/L (98-107); CREATININE 0.5 mg/dL (0.6-1.3); GLUCOSE 95 mg/dL (74-106); MAGNESIUM 1.7 mg/dL (1.8-2.4); PHOSPHORUS 4.1 mg/dL (2.5-4.9); POTASSIUM 4.1 mmol/L (3.5-5.1); SODIUM SERUM 140 mmol/L (136-145); UREA NITROGEN, BLOOD 15 mg/dL (7-18)
--- NOTE | 2022-01-06 07:32 | NUR ---
RN OPENING NOTES RECEIVED PATIENT REPORT FROM NIGHTSHIFT RN. PATIENT IS AWAKE SITTING UP IN BED ALERT AND ORIENTED TIMES 4, AND ABLE TO MAKE NEEDS KNOWN. BREATHING EVENLY AND UNLABORED ON ROOM AIR WITH OXYGEN SATURATION AT 97%. CURRENT TELE MONITOR READING SINUS RHYTHM WITH PVCS IN THE 80S. SKIN IS INTACT. IV ACCESS NOTED ON RIGHT FOREARM 20 GAUGE. WILL CONTINUE PLAN OF CARE AND ANTICIPATE NEEDS.
[2022-01-06 07:38] LABS: CHOLESTEROL 146 mg/dL (<200); HDL CHOLESTEROL 70 mg/dL (40-60); LDL 59 mg/dL (0-99); TRIGLYCERIDES 70 mg/dL (30-150)
[2022-01-06 08:00] VITALS: BP 120/69
[2022-01-06] MEDS: PANTOPRAZOLE 40 MG TABLET.DR PO SCH (08:01)
[2022-01-06] MEDS: LORATADINE 10 MG TABLET PO SCH (08:40)
[2022-01-06] MEDS: VALSARTAN 80 MG TABLET PO SCH (08:41)
[2022-01-06 08:52] LABS: CHOLESTEROL 145 mg/dL (<200); HDL CHOLESTEROL 69 mg/dL (40-60); LDL 59 mg/dL (0-99); TRIGLYCERIDES 68 mg/dL (30-150)
[2022-01-06] MEDS ORDERED: ALBUTEROL FS 2.5 MG/3 ML VIAL.NEB NEB SCH (09:00)
[2022-01-06] MEDS: Magnesium 1GM/D5W 100ML PREMIX 100 ML IV SCH ×2 (10:22→11:22)
[2022-01-06 12:00] VITALS: BP 96/67
[2022-01-06] MEDS ORDERED: ALBUTEROL SULFATE 8 GM HFA.AER.AD NEB PRN (13:30)
[2022-01-06 16:00] VITALS: BP 108/58
--- NOTE | 2022-01-06 18:47 | NUR ---
RN CLOSING NOTES PATIENT IS AWAKE SITTING IN BEDSIDE CHAIR, ALERT AND ORIENTED TIMES 4, AND ABLE TO MAKE NEEDS KNOWN. BREATHING EVENLY AND UNLABORED ON ROOM AIR. SKIN IS INTACT. IV ACCESS NOTED ON RIGHT FOREARM 20 GAUGE, FLUSHING. WILL ENDORSE TO NIGHTSHIFT RN FOR CONTINUATION OF CARE.
[2022-01-06 20:00] VITALS: BP 110/60
--- NOTE | 2022-01-06 20:00 | NUR ---
MS RN OPENING NOTES RECEIVED PATIENT IN BED AWAKE A/OX3 ABLE TO MAKE NEEDS KNOWN. BREATHING EVENLY AND UNLABORED ON ROOM AIR WITH OXYGEN SATURATION AT 97%. MS STATUS . SKIN IS INTACT. IV ACCESS NOTED ON RIGHT FOREARM 18 GAUGE. INTACT AND PATENT DUE IV ATB GIVEN ORDERED NO ASE NOTED CALL LIGHT WITHIN REACH WILL CONTINUE PLAN OF CARE AND ANTICIPATE NEEDS.
[2022-01-07 04:00] VITALS: BP 95/57
--- NOTE | 2022-01-07 06:46 | NUR ---
ms rn notes Pts in bed awake a/ox4 vitals stable no macho the whole shift pts comfortable in bed,will endorse to rn day shift for continuity of care.
[2022-01-07 07:05] LABS: BASOPHILS % (AUTO) 0.6 % (0.0-2.0); EOSINOPHILS % (AUTO) 4.2 % (0.0-6.0); HEMATOCRIT 38 % (33-45); HEMOGLOBIN 12.6 g/dL (11.5-14.8); LYMPHOCYTES # (AUTO) 1.4 K/uL (0.8-4.8); LYMPHOCYTES % (AUTO) 25.6 % (20.0-44.0); MEAN CORPUSCULAR HGB CONC 33 g/dl (31.0-36.0); MEAN CORPUSCULAR VOLUME 91 fL (82-100); MONOCYTES # (AUTO) 0.6 K/uL (0.1-1.30); MONOCYTES % (AUTO) 10.5 % (2.0-12.0); NEUTROPHILS # (AUTO) 3.1 K/uL (1.8-8.9); NEUTROPHILS % (AUTO) 59.1 % (43.0-81.0); PLATELET COUNT (AUTO) 234 K/uL (150-450); RED BLOOD CELL COUNT(AUTO) 4.19 MIL/uL (4.0-5.2); WHITE BLOOD COUNT (AUTO) 5.3 K/uL (4.3-11.0)
[2022-01-07 07:23] LABS: CALCIUM, SERUM 8.6 mg/dL (8.5-10.1); CARBON DIOXIDE 25 mmol/L (21-32); CHLORIDE 107 mmol/L (98-107); CREATININE 0.5 mg/dL (0.6-1.3); GLUCOSE 103 mg/dL (74-106); MAGNESIUM 2.2 mg/dL (1.8-2.4); POTASSIUM 4.2 mmol/L (3.5-5.1); SODIUM SERUM 142 mmol/L (136-145); UREA NITROGEN, BLOOD 15 mg/dL (7-18)
--- NOTE | 2022-01-07 07:30 | NUR ---
RN OPENING NOTE PATIENT IS IN BED, AWAKE, ALERT ORIENTED X 4. ON ROOM AIR, SATTING AT 98%. RHONCHI UPON AUSCULTATION AND WITH PRODUCTIVE COUGH, BUT NOT IN ANY FORM OF RESPIRATORY DISTRESS. DENIES CHEST PAIN. WITH RIGHT FOREARM GAUGE 18 SALINE LOCK INTACT AND PATENT. BED IS LOCKED IN LOWEST POSITION, 3 SIDE RAILS UP, CALL LIGHT WITHIN REACH. WILL CONTINUE TO MONITOR THROUGHOUT SHIFT.
[2022-01-07] MEDS: LORATADINE 10 MG TABLET PO SCH (08:46)
[2022-01-07 08:47] VITALS: BP 99/66
[2022-01-07] MEDS: VALSARTAN 80 MG TABLET PO SCH (08:47)
[2022-01-07] MEDS: PANTOPRAZOLE 40 MG TABLET.DR PO SCH (08:50)
[2022-01-07] MEDS ORDERED: ALBUTEROL SULFATE 8 GM HFA.AER.AD IH SCH (09:00)
[2022-01-07] MEDS ORDERED: PRED50TA PO (10:25)
[2022-01-07] MEDS ORDERED: predniSONE 20 MG TABLET PO SCH (10:30)
--- NOTE | 2022-01-07 11:57 | NUR ---
RN CLOSING NOTE PATIENT IS DISCHARGED TO HOME IN STABLE CONDITION AND NOT IN ANY FORM OF DISTRESS. ALL FORMS PROCESSED AND PERTINENT FORMS SIGNED BY PATIENT. IV SALINE LOCK DISCONTINUED, WITH CANNULA TIP INTACT. NO BLEEDING NOTED ON IV SITE. PATIENT ACCOMPANIED TO THE LOBBY VIA WHEEL CHAIR AND WAS PICKED-UP BY A FEMALE FRIEND. DISCHARGE VITAL SIGNS: TEMP 97.8, HR 92, RR 22 O2 SAT 96 BP 108/58.
== END 2022-01-07 11:51 | disposition home or self-care (01) | DRG 194 ==
LOC: ER 17:03 → TELE1 23:47 → MEDSG1 01-06 08:38
PROVIDERS: ADMIT Nurse Practitioner Acute Care; ATTEND Internal Medicine
DX: J15.9 Unspecified bacterial pneumonia (principal); J45.901 Unspecified asthma with (acute) exacerbation; Z20.822 Contact with and (suspected) exposure to COVID-19; Z90.49 Acquired absence of other specified parts of digestive tract; R79.89 Other specified abnormal findings of blood chemistry; Z79.51 Long term (current) use of inhaled steroids; I10 Essential (primary) hypertension; Z87.891 Personal history of nicotine dependence; J20.9 Acute bronchitis, unspecified
CPT/HCPCS: 36415; 71045-TC; 80048-TC; 80061-TC; 80076-TC; 83735-TC; 83880; 84100-TC; 84484-TC; 85025-TC; 85378-TC; 87081-TC; 93307-TC; 94799-TC; A4216; C9803; G0378; J0696; J1956; J3475; J7050; U0003

== ENCOUNTER 2022-05-25 22:38 | Emergency (ER) | payer MEDICARE, OTHER ==
[~2022-05-25] VITALS: Ht 160 cm; Wt 61.7 kg
[~2022-05-25 22:38] MED LIST changes: -ASPI-1420 PO; -HYDR-3972 PO; -HYDR-4303 PO; -LOSA100T31 PO; -ONDA4TAB5 PO; +PRED50TA PO; +VALS80TA2 PO
--- NOTE | 2022-05-25 23:00 | NUR ---
BIBS. PRODUCTIVE COUGH AND SOB. COMPLETED ATB YESTERDAY. AMBULATORY, PLACED ON BED, BREATHING EVEN AND UNLABORED SATURATING AT 96%RA
[2022-05-25] MEDS ORDERED: predniSONE 20 MG TABLET ONE (23:18)
[2022-05-25] MEDS ORDERED: predniSONE 50 MG TABLET PO ONE (23:30)
[2022-05-25] MEDS ORDERED: IPRATROPIUM NEB FS 0.5 MG/2.5 ML AMPUL.NEB NEB ONE (23:30)
[2022-05-25] MEDS ORDERED: ALBUTEROL FS 2.5 MG/3 ML VIAL.NEB CONTNEB ONE (23:30)
--- NOTE | 2022-05-25 23:31 | NUR ---
BLOOD DRAWN AND SENT TO LAB
[2022-05-25] MEDS ORDERED: IPRATROPIUM NEB FS 0.5 MG/2.5 ML AMPUL.NEB ONE (23:50)
[2022-05-25] MEDS ORDERED: ALBUTEROL FS 2.5 MG/3 ML VIAL.NEB ONE (23:50)
[2022-05-26 00:06] LABS: BASOPHILS # (AUTO) 0.1 K/uL (0.0-0.2); BASOPHILS % (AUTO) 0.9 % (0.0-2.0); EOSINOPHILS % (AUTO) 9.2 % (0.0-6.0); HEMATOCRIT 39 % (33-45); HEMOGLOBIN 12.9 g/dL (11.5-14.8); LYMPHOCYTES # (AUTO) 2.7 K/uL (0.8-4.8); LYMPHOCYTES % (AUTO) 34.8 % (20.0-44.0); MEAN CORPUSCULAR HGB CONC 33 g/dl (31.0-36.0); MEAN CORPUSCULAR VOLUME 92 fL (82-100); MONOCYTES # (AUTO) 0.6 K/uL (0.1-1.30); MONOCYTES % (AUTO) 7.9 % (2.0-12.0); NEUTROPHILS # (AUTO) 3.6 K/uL (1.8-8.9); NEUTROPHILS % (AUTO) 47.2 % (43.0-81.0); PLATELET COUNT (AUTO) 282 K/uL (150-450); RED BLOOD CELL COUNT(AUTO) 4.27 MIL/uL (4.0-5.2); WHITE BLOOD COUNT (AUTO) 7.7 K/uL (4.3-11.0)
[2022-05-26 00:17] LABS: CALCIUM, SERUM 9.4 mg/dL (8.5-10.1); CARBON DIOXIDE 27 mmol/L (21-32); CHLORIDE 107 mmol/L (98-107); CREATININE 0.5 mg/dL (0.6-1.3); GLUCOSE 101 mg/dL (74-106); POTASSIUM 3.5 mmol/L (3.5-5.1); SODIUM SERUM 143 mmol/L (136-145); UREA NITROGEN, BLOOD 13 mg/dL (7-18)
[2022-05-26] MEDS ORDERED: GUAI600T53 PO (00:35)
[2022-05-26] MEDS ORDERED: PRED20TA GT (00:35)
--- NOTE | 2022-05-26 00:50 | NUR ---
IV removed. Catheter intact and site benign. Pressure and 4x4 applied to site. No bleeding noted.
--- NOTE | 2022-05-26 00:57 | NUR ---
Patient discharged to home in stable condition. Written and verbal after care instructions given. Patient verbalizes understanding of instruction.
[2022-05-26 00:58] VITALS: BP 129/78
== END 2022-05-26 00:58 | disposition home or self-care (01) ==
LOC: ER 22:58
DX: J06.9 Acute upper respiratory infection, unspecified (principal); J20.9 Acute bronchitis, unspecified; Z60.2 Problems related to living alone; Z79.899 Other long term (current) drug therapy
CPT/HCPCS: 99285; 71045; 93005; 85025; 80048; 36415; 84484; 94644; J7512

== ENCOUNTER 2022-10-18 18:16 | Emergency (ER) | payer MEDICARE, OTHER ==
[~2022-10-18] VITALS: Ht 157.5 cm; Wt 60.3 kg
[~2022-10-18 18:16] MED LIST changes: +GUAI600T53 PO; +PRED20TA GT
--- NOTE | 2022-10-18 18:35 | NUR ---
RECEIVED PT 72 YRS FEMALE FROM HOME DINESS ANY WEEKNESS DINENESS DIZZNESS
--- NOTE | 2022-10-18 18:50 | NUR ---
SEEN BY DR. OLIVERA
--- NOTE | 2022-10-18 19:05 | NUR ---
BLOOD DROW BY LAB TACK
--- NOTE | 2022-10-18 19:12 | NUR ---
TO CT SCAN OF HEAD
--- NOTE | 2022-10-18 19:35 | NUR ---
HAND OFF BRUNO ESCOBAR
[2022-10-18 19:36] LABS: CALCIUM, SERUM 9.1 mg/dL (8.5-10.1); CARBON DIOXIDE 27 mmol/L (21-32); CHLORIDE 106 mmol/L (98-107); CREATININE 0.7 mg/dL (0.6-1.3); GLUCOSE 134 mg/dL (74-106); POTASSIUM 3.8 mmol/L (3.5-5.1); SODIUM SERUM 142 mmol/L (136-145); UREA NITROGEN, BLOOD 25 mg/dL (7-18)
[2022-10-18 19:50] LABS: ALANINE AMINOTRANSFERASE 21 U/L (12-78); ALBUMIN 3.7 g/dL (3.4-5.0); ALKALINE PHOSPHATASE 68 U/L (46-116); ASPARTATE AMINOTRANSFERASE 19 U/L (15-37); BILIRUBIN,DIRECT 0.1 mg/dL (0.0-0.2); BILIRUBIN,TOTAL 0.2 mg/dL (0.2-1.0)
[2022-10-18 20:18] LABS: BASOPHILS % (AUTO) 0.6 % (0.0-2.0); EOSINOPHILS % (AUTO) 1.7 % (0.0-6.0); HEMATOCRIT 40 % (33-45); HEMOGLOBIN 12.9 g/dL (11.5-14.8); LYMPHOCYTES % (AUTO) 27.5 % (20.0-44.0); MEAN CORPUSCULAR HGB CONC 32 g/dl (31.0-36.0); MEAN CORPUSCULAR VOLUME 92 fL (82-100); MONOCYTES # (AUTO) 0.6 K/uL (0.1-1.30); MONOCYTES % (AUTO) 7.7 % (2.0-12.0); NEUTROPHILS # (AUTO) 4.6 K/uL (1.8-8.9); NEUTROPHILS % (AUTO) 62.5 % (43.0-81.0); PLATELET COUNT (AUTO) 308 K/uL (150-450); RED BLOOD CELL COUNT(AUTO) 4.29 MIL/uL (4.0-5.2); WHITE BLOOD COUNT (AUTO) 7.4 K/uL (4.3-11.0)
--- NOTE | 2022-10-18 21:26 | NUR ---
Patient discharged to home in stable condition. Written and verbal after care instructions given. Patient verbalizes understanding of instruction. pt ambulatory with a steady gait
[2022-10-18 21:27] VITALS: BP 105/55
== END 2022-10-18 21:27 | disposition home or self-care (01) ==
LOC: ER 18:26
DX: R42 Dizziness and giddiness (principal); I10 Essential (primary) hypertension; Z90.49 Acquired absence of other specified parts of digestive tract; Z79.899 Other long term (current) drug therapy; Z60.2 Problems related to living alone
CPT/HCPCS: 99285; 70450; 71045; 93005; 85025; 80048; 80076; 36415; 84484; 83880; 82962; A4223

== ENCOUNTER 2023-11-26 11:32 | Outpatient (CLI) | payer MEDICARE, OTHER ==
[~2023-11-26 11:32] MED LIST changes: +NITR100C6 PO
== END 2023-11-26 23:59 | disposition home or self-care (01) ==
LOC: RAD 11:32
PROVIDERS: ATTEND Internal Medicine Pulmonary Disease
DX: Z01.818 Encounter for other preprocedural examination (principal)
CPT/HCPCS: 71045-TC

== ENCOUNTER 2024-05-25 23:00 | Emergency (ER) | payer MEDICARE, OTHER ==
[~2024-05-25] VITALS: Ht 157.5 cm; Wt 63.0 kg
[2024-05-25] MEDS ORDERED: ONDANSETRON HCL/PF 4 MG/2 ML VIAL ONE (23:40)
[2024-05-25] MEDS ORDERED: PANTOPRAZOLE 40 MG VIAL ONE (23:40)
[2024-05-25 23:54] LABS: BASOPHILS # (AUTO) 0.1 K/uL (0.0-0.2); BASOPHILS % (AUTO) 0.9 % (0.0-2.0); EOSINOPHILS # (AUTO) 0.2 K/uL (0.0-0.7); EOSINOPHILS % (AUTO) 2.3 % (0.0-6.0); HEMATOCRIT 40 % (33-45); HEMOGLOBIN 13.1 g/dL (11.5-14.8); LYMPHOCYTES # (AUTO) 2.1 K/uL (0.8-4.8); LYMPHOCYTES % (AUTO) 28.3 % (20.0-44.0); MEAN CORPUSCULAR HEMOGLOBIN 30 PG (26.0-33.0); MEAN CORPUSCULAR HGB CONC 33 g/dl (31.0-36.0); MEAN CORPUSCULAR VOLUME 93 fL (82-100); MONOCYTES # (AUTO) 0.7 K/uL (0.1-1.30); MONOCYTES % (AUTO) 9.6 % (2.0-12.0); NEUTROPHILS # (AUTO) 4.3 K/uL (1.8-8.9); NEUTROPHILS % (AUTO) 58.9 % (43.0-81.0); PLATELET COUNT (AUTO) 232 K/uL (150-450); RED BLOOD CELL COUNT(AUTO) 4.31 MIL/uL (4.0-5.2); RED CELL DISTRIBUTION WIDTH 14.7 % (11.5-15.0); WHITE BLOOD COUNT (AUTO) 7.2 K/uL (4.3-11.0)
[2024-05-25] MEDS: PANTOPRAZOLE 40 MG VIAL IV ONE (23:54)
[2024-05-25] MEDS: ONDANSETRON HCL/PF 4 MG/2 ML VIAL IVP ONE (23:54)
[2024-05-25] MEDS: IV NS 0.9% 500 ML BAG IV ONE (23:54)
[2024-05-25 23:56] LABS: APPEARANCE,URINE CLEAR (CLEAR); BILIRUBIN,URINE NEGATIVE (NEGATIVE); BLOOD, URINE NEGATIVE Ery/uL (NEGATIVE); COLOR,URINE YELLOW (YELLOW); KETONES,URINE NEGATIVE (NEGATIVE); LEUKOCYTE ESTERASE ,URINE TRACE (NEGATIVE); NITRITE, URINE NEGATIVE (NEGATIVE); PROTEIN,URINE NEGATIVE (NEGATIVE); UGLUCOSE NEGATIVE (NEGATIVE); UROBILINOGEN,URINE 0.2 EU/dL (0.2)
[2024-05-26 00:12] LABS: ALANINE AMINOTRANSFERASE 25 U/L (12-78); ALKALINE PHOSPHATASE 58 U/L (46-116); ASPARTATE AMINOTRANSFERASE 17 U/L (15-37); BILIRUBIN,DIRECT 0.1 mg/dL (0.0-0.2); BILIRUBIN,TOTAL 0.5 mg/dL (0.2-1.0); CALCIUM, SERUM 9.3 mg/dL (8.5-10.1); CREATININE 0.7 mg/dL (0.6-1.3); GLUCOSE 110 mg/dL (74-106); LIPASE 43 U/L (16-77); TOTAL PROTEIN, SERUM 7.2 g/dL (6.4-8.2); UREA NITROGEN, BLOOD 23 mg/dL (7-18)
[2024-05-26 00:22] LABS: CHLORIDE 105 mmol/L (98-107); POTASSIUM 4.4 mmol/L (3.5-5.1); SODIUM SERUM 144 mmol/L (136-145)
[2024-05-26 00:26] LABS: CARBON DIOXIDE 26 mmol/L (21-32)
[2024-05-26 00:38] LABS: ADD URINE CULTURE NO; BACTERIA,URINE 1+ /HPF (None Seen); RBC,URINE NONE SEEN /HPF (0-2)
[2024-05-26] MEDS ORDERED: CEFTRIAXONE 1GM BAG (ER ONLY) 50 ML IV ONE (00:50)
[2024-05-26] MEDS: CEFTRIAXONE 1GM BAG (ER ONLY) 1 GM/50 ML PIGGYBACK IV ONE (00:58)
[2024-05-26] MEDS ORDERED: IBUP-1953 PO (01:50)
[2024-05-26] MEDS ORDERED: CEPH500T PO (01:50)
[2024-05-26 02:10] VITALS: BP 117/65; TEMP 98; O2SAT 95
== END 2024-05-26 02:12 | disposition home or self-care (01) ==
LOC: ER 23:02
DX: N39.0 Urinary tract infection, site not specified (principal); R10.84 Generalized abdominal pain; I10 Essential (primary) hypertension; Z79.52 Long term (current) use of systemic steroids; Z79.899 Other long term (current) drug therapy; Z90.49 Acquired absence of other specified parts of digestive tract; Z86.79 Personal history of other diseases of the circulatory system; Z60.2 Problems related to living alone
CPT/HCPCS: 99285; 74176; 96375; 85025; 80048; 83690; 80076; 81001; 36415; 96365; J2405; J7040; J2470; J0696

== ENCOUNTER 2024-07-05 12:35 | Emergency (ER) | payer MEDICARE, OTHER ==
[~2024-07-05] VITALS: Ht 157.5 cm; Wt 63.0 kg
[~2024-07-05 12:35] MED LIST changes: +CEPH500T PO; +IBUP-1953 PO
[2024-07-05 13:22] LABS: BASOPHILS # (AUTO) 0.1 K/uL (0.0-0.2); BASOPHILS % (AUTO) 0.8 % (0.0-2.0); EOSINOPHILS # (AUTO) 0.1 K/uL (0.0-0.7); HEMATOCRIT 41 % (33-45); HEMOGLOBIN 14.1 g/dL (11.5-14.8); LYMPHOCYTES # (AUTO) 2.1 K/uL (0.8-4.8); LYMPHOCYTES % (AUTO) 19.9 % (20.0-44.0); MEAN CORPUSCULAR HEMOGLOBIN 32 PG (26.0-33.0); MEAN CORPUSCULAR HGB CONC 35 g/dl (31.0-36.0); MEAN CORPUSCULAR VOLUME 93 fL (82-100); MONOCYTES # (AUTO) 0.8 K/uL (0.1-1.30); MONOCYTES % (AUTO) 7.5 % (2.0-12.0); NEUTROPHILS # (AUTO) 7.4 K/uL (1.8-8.9); NEUTROPHILS % (AUTO) 70.8 % (43.0-81.0); PLATELET COUNT (AUTO) 299 K/uL (150-450); RED CELL DISTRIBUTION WIDTH 14.5 % (11.5-15.0); WHITE BLOOD COUNT (AUTO) 10.5 K/uL (4.3-11.0)
[2024-07-05 13:30] LABS: CALCIUM, SERUM 9.4 mg/dL (8.5-10.1); CREATININE 0.7 mg/dL (0.6-1.3); POTASSIUM 4.2 mmol/L (3.5-5.1)
[2024-07-05 14:21] VITALS: BP 130/76; TEMP 98.6; O2SAT 99
[2024-07-05 14:31] LABS: APPEARANCE,URINE SLIGHTLY CLOUDY (CLEAR); BILIRUBIN,URINE NEGATIVE (NEGATIVE); BLOOD, URINE NEGATIVE Ery/uL (NEGATIVE); COLOR,URINE YELLOW (YELLOW); KETONES,URINE NEGATIVE (NEGATIVE); LEUKOCYTE ESTERASE ,URINE 1+ (NEGATIVE); NITRITE, URINE NEGATIVE (NEGATIVE); PROTEIN,URINE NEGATIVE (NEGATIVE); UGLUCOSE NEGATIVE (NEGATIVE); UROBILINOGEN,URINE 0.2 EU/dL (0.2)
[2024-07-05 16:08] LABS: RBC,URINE 0-2 /HPF (0-2)
[2024-07-05 16:09] LABS: ADD URINE CULTURE YES; BACTERIA,URINE 1+ /HPF (None Seen); SQUAMOUS EPITHELIAL CELL,UR 0-2 /HPF (None Seen)
== END 2024-07-05 14:22 | disposition home or self-care (01) ==
LOC: ER 12:42
DX: N39.0 Urinary tract infection, site not specified (principal); I10 Essential (primary) hypertension; Z79.52 Long term (current) use of systemic steroids; Z79.899 Other long term (current) drug therapy; Z90.49 Acquired absence of other specified parts of digestive tract; Z86.79 Personal history of other diseases of the circulatory system; Z87.19 Personal history of other diseases of the digestive system; Z60.2 Problems related to living alone
CPT/HCPCS: 36415; 80048-TC; 81001; 85025-TC; 87086-TC

== ENCOUNTER 2024-07-14 18:34 | Emergency (ER) | payer MEDICARE, OTHER ==
[~2024-07-14] VITALS: Ht 157.5 cm; Wt 64.4 kg
[2024-07-14 19:33] LABS: BASOPHILS % (AUTO) 0.4 % (0.0-2.0); EOSINOPHILS # (AUTO) 0.4 K/uL (0.0-0.7); EOSINOPHILS % (AUTO) 4.7 % (0.0-6.0); HEMATOCRIT 36 % (33-45); HEMOGLOBIN 12.2 g/dL (11.5-14.8); LYMPHOCYTES # (AUTO) 1.9 K/uL (0.8-4.8); LYMPHOCYTES % (AUTO) 20.4 % (20.0-44.0); MEAN CORPUSCULAR HEMOGLOBIN 31 PG (26.0-33.0); MEAN CORPUSCULAR HGB CONC 34 g/dl (31.0-36.0); MEAN CORPUSCULAR VOLUME 93 fL (82-100); MONOCYTES # (AUTO) 0.7 K/uL (0.1-1.30); MONOCYTES % (AUTO) 7.3 % (2.0-12.0); NEUTROPHILS # (AUTO) 6.2 K/uL (1.8-8.9); NEUTROPHILS % (AUTO) 67.2 % (43.0-81.0); PLATELET COUNT (AUTO) 231 K/uL (150-450); RED CELL DISTRIBUTION WIDTH 14.5 % (11.5-15.0); WHITE BLOOD COUNT (AUTO) 9.2 K/uL (4.3-11.0)
[2024-07-14 19:44] LABS: CALCIUM, SERUM 9.2 mg/dL (8.5-10.1); CARBON DIOXIDE 29 mmol/L (21-32); CHLORIDE 104 mmol/L (98-107); CREATININE 0.9 mg/dL (0.6-1.3); GLUCOSE 94 mg/dL (74-106); POTASSIUM 3.7 mmol/L (3.5-5.1); SODIUM SERUM 139 mmol/L (136-145); UREA NITROGEN, BLOOD 28 mg/dL (7-18)
[2024-07-14 19:50] LABS: ALANINE AMINOTRANSFERASE 31 U/L (12-78); ALBUMIN 3.4 g/dL (3.4-5.0); ALKALINE PHOSPHATASE 73 U/L (46-116); ASPARTATE AMINOTRANSFERASE 22 U/L (15-37); BILIRUBIN,DIRECT 0.1 mg/dL (0.0-0.2); BILIRUBIN,TOTAL 0.4 mg/dL (0.2-1.0); TOTAL PROTEIN, SERUM 7.4 g/dL (6.4-8.2)
[2024-07-14 20:14] LABS: APPEARANCE,URINE CLEAR (CLEAR); BILIRUBIN,URINE NEGATIVE (NEGATIVE); BLOOD, URINE TRACE-INTA Ery/uL (NEGATIVE); COLOR,URINE YELLOW (YELLOW); KETONES,URINE 1+ mg/dL (NEGATIVE); LEUKOCYTE ESTERASE ,URINE TRACE (NEGATIVE); NITRITE, URINE NEGATIVE (NEGATIVE); PROTEIN,URINE TRACE mg/dl (NEGATIVE); UGLUCOSE NEGATIVE (NEGATIVE); UROBILINOGEN,URINE 0.2 EU/dL (0.2)
[2024-07-14 20:19] LABS: INR 1.04 (0.91-1.10); PARTIAL THROMBOPLASTIN TIME 30.8 SEC (24.3-34.3)
[2024-07-14 20:28] LABS: ADD URINE CULTURE YES; BACTERIA,URINE Few /HPF (None Seen); SQUAMOUS EPITHELIAL CELL,UR Few /HPF (None Seen)
[2024-07-14 21:53] LABS: NT-PRO BNP 2724 pg/mL (0-125)
[2024-07-14 23:10] VITALS: BP 121/62; TEMP 98; O2SAT 99
== END 2024-07-14 23:10 | disposition home or self-care (01) ==
LOC: ER 18:39
DX: R53.83 Other fatigue (principal); R21 Rash and other nonspecific skin eruption; R07.9 Chest pain, unspecified; R53.1 Weakness; I10 Essential (primary) hypertension; Z79.52 Long term (current) use of systemic steroids; Z79.899 Other long term (current) drug therapy; Z90.49 Acquired absence of other specified parts of digestive tract; Z87.19 Personal history of other diseases of the digestive system; Z60.2 Problems related to living alone
CPT/HCPCS: 36415; 71045-TC; 80048-TC; 80076-TC; 81001; 83880; 84484-TC; 85025-TC; 85730-TC

== ENCOUNTER 2025-03-12 15:57 | Emergency (ER) | payer MEDICARE, OTHER ==
[~2025-03-12] VITALS: Ht 157.5 cm; Wt 64.0 kg
[2025-03-12 16:08] VITALS: BP 133/71; TEMP 98.1
[2025-03-12 17:36] VITALS: O2SAT 98
== END 2025-03-12 17:37 | disposition home or self-care (01) ==
LOC: ER 16:10
DX: M79.642 Pain in left hand (principal); I10 Essential (primary) hypertension; Z79.52 Long term (current) use of systemic steroids; Z79.899 Other long term (current) drug therapy; Z90.49 Acquired absence of other specified parts of digestive tract; Z86.79 Personal history of other diseases of the circulatory system; Z87.19 Personal history of other diseases of the digestive system; Z60.2 Problems related to living alone
CPT/HCPCS: 73130-TC

== ENCOUNTER 2025-05-03 14:01 | Emergency (ER) | payer MEDICARE, OTHER ==
[~2025-05-03] VITALS: Ht 157.5 cm; Wt 67.1 kg
[2025-05-03] MEDS ORDERED: ACETAMINOPHEN ES 500 MG TABLET ONE (15:25)
[2025-05-03] MEDS: ACETAMINOPHEN ES 500 MG TABLET PO ONE (15:28)
[2025-05-03] MEDS ORDERED: NALOXONE HCL 0.4 MG/ML AMPUL IV ONE (15:30)
[2025-05-03 15:52] LABS: WHITE BLOOD COUNT (AUTO) 8.0 K/uL (4.3-11.0)
[2025-05-03 15:55] LABS: PLATELET COUNT (AUTO) 230 K/uL (150-450); RED BLOOD CELL COUNT(AUTO) 4.40 MIL/uL (4.0-5.2); RED CELL DISTRIBUTION WIDTH 14.3 % (11.5-15.0)
[2025-05-03 16:00] LABS: CALCIUM, SERUM 9.0 mg/dL (8.5-10.1); CREATININE 0.5 mg/dL (0.6-1.3); SODIUM SERUM 141 mmol/L (136-145); UREA NITROGEN, BLOOD 20 mg/dL (7-18)
[2025-05-03] MEDS ORDERED: IBUP-1490 PO (16:56)
[2025-05-03 17:45] VITALS: BP 136/75; TEMP 98.3; O2SAT 99
== END 2025-05-03 18:29 | disposition home or self-care (01) ==
LOC: ER 14:05
DX: S82.001A Unspecified fracture of right patella, initial encounter for closed fracture (principal); S50.01XA Contusion of right elbow, initial encounter; S20.212A Contusion of left front wall of thorax, initial encounter; S80.12XA Contusion of left lower leg, initial encounter; I11.9 Hypertensive heart disease without heart failure; Z79.52 Long term (current) use of systemic steroids; Z79.899 Other long term (current) drug therapy; Z90.49 Acquired absence of other specified parts of digestive tract; W18.39XA Other fall on same level, initial encounter; Y93.89 Activity, other specified; Y92.89 Other specified places as the place of occurrence of the external cause; Y99.9 Unspecified external cause status
CPT/HCPCS: 36415; 71100-TC; 73080-TC; 73562; 73590-TC; 80048-TC; 85025-TC